=== PATIENT | female | born 1940 | race Caucasian/White ===

== ENCOUNTER → 2018-03-13 08:31 | Outpatient (CLI) | payer MEDICARE, SELFPAY ==
[2018-03-13 09:36] LABS: Add Manual Diff / Slide Review NO; Basophils Percent Auto 0.8 % (0-2); Eosinophils Percent Auto 4.9 % (2-4); Hematocrit 41.5 % (36-46); Hemoglobin 14.1 g/dL (12.0-16.0); Lymphocytes Percent Auto 20.7 % (25-40); Mean Corpuscular HGB Conc 34.1 % (30-36); Mean Corpuscular Hemoglobin 31.6 PG (26-34); Mean Corpuscular Volume 92.7 fL (80-100); Monocytes Percent Auto 7.4 % (3-14); Neutrophils Absolute Auto 4000 /uL (3000-5900); Neutrophils Percent Auto 66.2 % (50-75); Platelet Count 323 X10^3/uL (150-400); Red Blood Cell Count 4.47 X10^6/uL (4.0-5.2); Red Cell Distribution Width 13.1 % (11.6-14.8)
[2018-03-13 10:08] LABS: Alanine Aminotransferase 31 IU/L (9-52); Albumin Globulin Ratio 1.4 (1.0-2.8); Alkaline Phosphatase 71 U/L (38-126); Aspartate Aminotransferase 32 IU/L (14-36); Bilirubin Total 0.6 mg/dL (0.2-1.3); Blood Urea Nitrogen 16 mg/dL (7-17); Calcium 9.1 mg/dL (8.4-10.2); Carbon Dioxide 31 mmol/L (22-32); Chloride 105 mmol/L (98-107); Cholesterol 248 mg/dL (140-199); Estimated Glomerular Filt Rate > 60.0 mL/min (>60); Globulin 2.9 g/dL (1.7-4.1); Glucose 99 mg/dL (80-110); HDL Cholesterol 71 mg/dL (40-60); HEMOLYSIS < 15 (0-50); LDL Cholesterol Calculated 163 mg/dL (<100); Potassium 4.3 mmol/L (3.4-5.1); Sodium 142 mmol/L (137-145); Total Protein 6.9 g/dL (6.3-8.2); Triglycerides 72 mg/dL (35-150)
[2018-03-13 10:09] LABS: Vitamin D 25 Hydroxy (D3) 38.7 ng/mL (30.0-100.0)
[2018-03-13 10:22] LABS: Thyroid Stimulating Hormone 5.35 uIU/mL (0.47-4.68)
[2018-03-13 10:47] LABS: Vitamin B12 590 pg/mL (239-931)
== END ==
PROVIDERS: PCP Family Medicine
DX: E03.9 Hypothyroidism, unspecified (principal); E78.2 Mixed hyperlipidemia; I10 Essential (primary) hypertension; R42 Dizziness and giddiness
CPT/HCPCS: 80053; 80061; 82306; 82607; 84443; 85025

== ENCOUNTER → 2018-03-31 08:53 | Outpatient (CLI) | payer MEDICARE, SELFPAY ==
[2018-03-31 12:16] LABS: TSH w/ Reflex to FT4 2.37 uIU/mL (0.47-4.68)
== END ==
PROVIDERS: Family Provider Family Medicine; PCP Family Medicine
DX: E03.9 Hypothyroidism, unspecified (principal)
CPT/HCPCS: 36415; 84443

== ENCOUNTER → 2018-06-04 10:00 | Outpatient (CLI) | payer MEDICARE, SELFPAY ==
[2018-06-04 11:06] LABS: BUN Creatinine Ratio 21.4 (6-22); Blood Urea Nitrogen 15 mg/dL (7-17); Calcium 8.6 mg/dL (8.4-10.2); Carbon Dioxide 29 mmol/L (22-32); Chloride 104 mmol/L (98-107); Creatine Kinase 72 U/L (30-135); Estimated Glomerular Filt Rate > 60.0 mL/min (>60); Glucose 84 mg/dL (80-110); HEMOLYSIS < 15 (0-50); Potassium 3.8 mmol/L (3.4-5.1); Sodium 143 mmol/L (137-145)
== END ==
PROVIDERS: PCP Student in an Organized Health Care Education/Training Program; Visit Provider Student in an Organized Health Care Education/Training Program
DX: R25.2 Cramp and spasm (principal)
CPT/HCPCS: 36415; 80048; 82550; 83735

== ENCOUNTER → 2018-09-03 10:11 | Outpatient (CLI) | payer MEDICARE, SELFPAY ==
--- NOTE | 2018-09-03 10:13 | DI.RAD.S_ITS ---
PROCEDURE: XR CHEST 2V INDICATIONS: Lower lobe crackles TECHNIQUE: 2 views of the chest were acquired. COMPARISON: [facility], CHEST 2 VIEW, 09/20/2016, 9:34. [facility], CHEST 2 VIEW, 08/22/2017, 10:15. FINDINGS: Surgical changes and devices: None. Lungs and pleura: There is linear densities left base, likely atelectasis or scars. Chronic apical opacities are likely scars/atelectasis. No pleural effusions or pneumothorax. Mediastinum: Mediastinal contours are normal. Heart size is normal. Bones and chest wall: No suspicious bony abnormalities. Soft tissues appear unremarkable. IMPRESSION: No acute cardiopulmonary disease. Dictated by: Mary Anne Pandya M.D. on 09/03/2018 at 11:04 Approved by: Mary Anne Panyda M.D. on 09/03/2018 at 11:06
== END ==
PROVIDERS: Family Provider Family Medicine; PCP Student in an Organized Health Care Education/Training Program; Visit Provider Registered Nurse
DX: R05 Cough (principal)
CPT/HCPCS: 71046

== ENCOUNTER → 2020-02-04 09:02 | Outpatient (CLI) | payer MEDICARE, SELFPAY ==
[2020-02-04 10:28] LABS: BUN Creatinine Ratio 20.8 (6-22); Blood Urea Nitrogen 15 mg/dL (7-17); Calcium 9.2 mg/dL (8.4-10.2); Carbon Dioxide 30 mmol/L (22-32); Chloride 105 mmol/L (98-107); Estimated Glomerular Filt Rate > 60.0 mL/min (>60); Glucose 86 mg/dL (80-110); HEMOLYSIS < 15 (0-50); Potassium 3.8 mmol/L (3.4-5.1); Sodium 138 mmol/L (137-145)
[2020-02-04 11:01] LABS: TSH w/ Reflex to FT4 0.81 uIU/mL (0.47-4.68)
== END ==
PROVIDERS: Family Provider Family Medicine; PCP Student in an Organized Health Care Education/Training Program; Referring Provider Student in an Organized Health Care Education/Training Program; Visit Provider Student in an Organized Health Care Education/Training Program
DX: E03.9 Hypothyroidism, unspecified (principal); I10 Essential (primary) hypertension
CPT/HCPCS: 36415; 80048; 84443

== ENCOUNTER → 2020-05-25 13:02 | Outpatient (CLI) | payer MEDICARE, SELFPAY ==
--- NOTE | 2020-06-21 09:05 | P.HOLT.S_ITS ---
Ambulatory Care Coordinator Report Referral & Results Date Patient Seen: 05/25/20 Requesting provider: Curt Schwartz Indication: Dizziness Duration of monitoring (days): 13 Diary information: There was 1 patient triggered event and no patient diary entries The patient triggered event was associated with (within 45 seconds) sinus rhythm and PACs Data: Minimum heart rate identified was 54 beats per minute at 04:11 on 06/01/2020 Maximum sinus heart rate was 135 beats per minute at 11:50 on 05/06/2020 Maximum overall heart rate was 197 beats per minute at 16:29 on 06/06/2020 during a 10 beat run of SVT Less than 1% of identified beats were ventricular ectopic in origin Approximately 2.5% of identified beats were supraventricular ectopic in origin There were 30 runs of SVT/atrial tachycardia with the fastest being the 10 beat run referenced above, the longest being 15 beats at a rate of 121 beats per minute (which suggest atrial tachycardia rather than true SVT) Supraventricular couplets and triplets were quite rare but present Impression: Patient with prominently supraventricular dysrhythmia probably a source of symptoms given patient triggered event. No serious or more significant dysrhythmias identified on this study. Clinical correlation suggested
== END ==
PROVIDERS: Family Provider Family Medicine; PCP Student in an Organized Health Care Education/Training Program; Referring Provider Student in an Organized Health Care Education/Training Program; Visit Provider Student in an Organized Health Care Education/Training Program
DX: R42 Dizziness and giddiness (principal); R55 Syncope and collapse
CPT/HCPCS: 0296T; 0298T

== ENCOUNTER → 2020-05-25 13:28 | Outpatient (CLI) | payer MEDICARE, SELFPAY | PROVIDERS: Family Provider Family Medicine; PCP Student in an Organized Health Care Education/Training Program; Referring Provider Student in an Organized Health Care Education/Training Program; Visit Provider Student in an Organized Health Care Education/Training Program | DX: Z13.820 Encounter for screening for osteoporosis (principal); M85.851 Other specified disorders of bone density and structure, right thigh; Z78.0 Asymptomatic menopausal state; E07.9 Disorder of thyroid, unspecified; Z87.891 Personal history of nicotine dependence; Z91.89 Other specified personal risk factors, not elsewhere classified; R42 Dizziness and giddiness; R55 Syncope and collapse | CPT/HCPCS: 0296T; 77080 ==

== ENCOUNTER → 2020-07-10 09:50 | Outpatient (CLI) | payer MEDICARE, SELFPAY ==
--- NOTE | 2020-07-10 | DI.MG.S_ITS ---
BILATERAL DIGITAL SCREENING MAMMOGRAM 3D/2D WITH CAD WITH AUGMENTATION: 07/10/2020 CLINICAL: Routine screening. Comparison is made to exams dated: 07/15/2017 mammogram, 07/14/2015 mammogram, and 09/30/2012 mammogram - [facility]. There are scattered fibroglandular elements in both breasts. Current study was also evaluated with a Computer Aided Detection (CAD) system. Bilateral breast implants are stable. There are benign densities in the left breast. No significant masses, calcifications, or other findings are seen in either breast. There has been no significant interval change. IMPRESSION: BENIGN There is no mammographic evidence of malignancy. A 1 year screening mammogram is recommended. This exam was interpreted at Station ID: [id number]. NOTE: For mammograms, a report in lay terms will be sent to the patient. Approximately 15% of breast malignancies will not be visualized mammographically. In the management of a palpable breast mass, a negative mammogram must not discourage biopsy of a clinically suspicious lesion. Electronically Signed By: Chris conner/eron:07/10/2020 18:26:48 copy to: Chencho oMnreal letter sent: Normal Exam ACR BI-RADS Category 2: Benign Finding(s) [id number]
== END ==
PROVIDERS: Family Provider Family Medicine; PCP Student in an Organized Health Care Education/Training Program; Referring Provider Student in an Organized Health Care Education/Training Program; Visit Provider Student in an Organized Health Care Education/Training Program
DX: Z12.31 Encounter for screening mammogram for malignant neoplasm of breast (principal)
CPT/HCPCS: 77063; 77067

== ENCOUNTER → 2020-10-26 13:35 | Outpatient (CLI) | payer MEDICARE, SELFPAY ==
--- NOTE | 2020-10-26 | DI.MRI.S_ITS ---
PROCEDURE: MR LUMBAR SPINE WO CON INDICATIONS: Radiculopathy, lumbar region TECHNIQUE: Noncontrast sagittal T1 spin echo and T2 fast echo, sagittal STIR, axial T1 and T2 fast spin echo through the lumbar spine. In cases with scoliosis, additional coronal T2 fast spin echo may be performed. COMPARISON: None. FINDINGS: Image quality: This examination is limited by involuntary motion artifact. Alignment and Curvature: There is [id number] levoconvex lumbar scoliosis. Minimal retrolisthesis is seen at L2-L3 and L3-L4 and L5-S1, with mild retrolisthesis at L4-L5. Bone Marrow: Marrow is of normal overall signal. No acute vertebral body compression fractures. Spinal Cord: Conus medullaris terminates at the T12-L1 level. Visualized cord demonstrates normal signal and size. Paraspinous Soft Tissues: No paravertebral masses. T12-L1: Normal appearance. L1-L2: No significant abnormality is seen. L2-L3: Moderate to severe loss of disc height and disc signal can be seen. At least moderate disc bulge is seen, which is eccentric to the right. Mild facet joint hypertrophy is seen. Moderate bilateral neural foraminal narrowing can be seen, right worse than left. Moderate central canal narrowing is seen. L3-L4: Moderate to severe loss of disc height and disc signal can be seen at this level. Partial bridging of anterior osteophytes and anterior endplate sclerosis can be seen at this level. At least moderate disc bulge is seen. Moderate facet joint hypertrophy is seen. There is moderate left-sided and at least moderate right-sided neural foraminal narrowing seen. There is a mild degree compression seen upon the exiting nerve roots. Moderate central canal narrowing is seen. L4-L5: Moderate loss of disc height is seen. Loss of disc signal is seen. Moderate disc bulge is seen, with a mild central disc protrusion. Prior postoperative change can be seen, with left hemilaminectomy. Moderate facet joint hypertrophy is seen. There is moderate to severe bilateral neural foraminal narrowing seen. There is a degree of compression seen upon the exiting nerve roots. Mild to moderate central canal narrowing is seen at this level. L5-S1: Moderate to severe loss of disc height and disc signal can be seen. Moderate generalized disc bulge is seen. Moderate facet joint hypertrophy is seen. There is at least moderate right-sided and moderate to severe left-sided neural foraminal narrowing seen. There is a degree of compression seen upon the exiting nerve roots. Mild central canal narrowing is seen. The nerve roots can be seen along the periphery of the thecal sac at this level, as on series 5, image 30, which is consistent with arachnoiditis. IMPRESSION: Prior postoperative change at L4-L5, with prior left hemilaminectomy. Findings of arachnoiditis can be seen, with peripheraliztion of the nerve roots inferiorly. Multiple levels of relatively prominent degenerative change are seen. Multiple sites of moderate to severe neural foraminal narrowing can be seen, with associated exiting nerve root compression. Moderate central canal narrowing is present at L2-L3 and L3-L4. [id number] levoconvex lumbar scoliosis. Dictated by: Long French M.D. on 10/26/2020 at 16:26 Approved by: Long French M.D. on 10/26/2020 at 16:32
== END ==
PROVIDERS: Family Provider Family Medicine; PCP Student in an Organized Health Care Education/Training Program; Referring Provider Student in an Organized Health Care Education/Training Program; Visit Provider Orthopaedic Surgery
DX: M47.26 Other spondylosis with radiculopathy, lumbar region (principal); M47.27 Other spondylosis with radiculopathy, lumbosacral region; G03.9 Meningitis, unspecified; M48.061 Spinal stenosis, lumbar region without neurogenic claudication; M48.07 Spinal stenosis, lumbosacral region; M41.86 Other forms of scoliosis, lumbar region
CPT/HCPCS: 72148

== ENCOUNTER → 2021-03-08 10:30 | Outpatient (CLI) | payer MEDICARE, SELFPAY ==
[2021-03-08 12:17] LABS: BUN Creatinine Ratio 16.7 (6-22); Blood Urea Nitrogen 12 mg/dL (7-17); Calcium 9.3 mg/dL (8.4-10.2); Carbon Dioxide 30 mmol/L (22-32); Chloride 103 mmol/L (98-107); Estimated Glomerular Filt Rate > 60.0 mL/min (>60); Glucose 93 mg/dL (80-110); HEMOLYSIS < 15 (0-50); Potassium 4.1 mmol/L (3.4-5.1); Sodium 138 mmol/L (137-145)
[2021-03-08 14:42] LABS: Thyroid Stimulating Hormone 1.36 uIU/mL (0.47-4.68)
== END ==
PROVIDERS: Family Provider Family Medicine; PCP Student in an Organized Health Care Education/Training Program; Referring Provider Student in an Organized Health Care Education/Training Program; Visit Provider Student in an Organized Health Care Education/Training Program
DX: I10 Essential (primary) hypertension (principal); E03.9 Hypothyroidism, unspecified; F41.9 Anxiety disorder, unspecified; R25.2 Cramp and spasm
CPT/HCPCS: 36415; 80048; 84443

== ENCOUNTER → 2021-04-25 08:50 | Outpatient (CLI) | payer MEDICARE, SELFPAY ==
[2021-04-25 11:56] LABS: COVID19 -Nasal RAPID Negative (Negative)
== END ==
PROVIDERS: Family Provider Family Medicine; PCP Student in an Organized Health Care Education/Training Program; Visit Provider Physician Assistant
DX: Z20.822 Contact with and (suspected) exposure to COVID-19 (principal); R05 Cough; R06.2 Wheezing
CPT/HCPCS: 87635

== ENCOUNTER → 2021-05-09 16:09 | Outpatient (CLI) | payer MEDICARE, SELFPAY ==
--- NOTE | 2021-05-09 16:13 | DI.RAD.S_ITS ---
PROCEDURE: XR CHEST 2V INDICATIONS: Chest pain left side TECHNIQUE: 2 views of the chest were acquired. COMPARISON: [facility], CR, XR CHEST 2V, 09/03/2018, 10:16. FINDINGS: Surgical changes and devices: None. Lungs and pleura: Lungs are clear. No pleural effusions or pneumothorax. Mediastinum: Mediastinal contours are normal. Heart size is normal. Bones and chest wall: No suspicious bony abnormalities. Soft tissues appear unremarkable. IMPRESSION: No acute cardiopulmonary process demonstrated radiographically. Dictated by: Toño Mccann M.D. on 05/09/2021 at 16:28 Approved by: Toño Mccann M.D. on 05/09/2021 at 16:29
== END ==
PROVIDERS: Family Provider Family Medicine; PCP Student in an Organized Health Care Education/Training Program; Referring Provider Student in an Organized Health Care Education/Training Program; Visit Provider Student in an Organized Health Care Education/Training Program
DX: R07.9 Chest pain, unspecified (principal)
CPT/HCPCS: 71046

== ENCOUNTER 2021-07-09 14:55 | Emergency (ER) | payer MEDICARE, SELFPAY ==
[2021-07-09] VITALS (12 sets, daily range): BP systolic 148–201; BP diastolic 84–101; PULSE 65–73; RESP 12–23; TEMP 36.4; O2SAT 94–99; BMI 23.0
--- NOTE | 2021-07-09 15:04 | DI.RAD.S_ITS ---
PROCEDURE: XR CHEST 1V INDICATIONS: chest pain TECHNIQUE: One view of the chest was acquired. COMPARISON: [facility], CR, XR CHEST 2V, 05/09/2021, 16:14. FINDINGS: Surgical changes and devices: None. Lungs and pleura: Lungs are clear. No pleural effusions or pneumothorax. Mediastinum: Mediastinal contours appear normal. Heart size is normal. Bones and chest wall: No suspicious bony lesions. Overlying soft tissues appear unremarkable. IMPRESSION: No acute process. Dictated by: Natividad Rojas M.D. on 07/09/2021 at 15:21 Approved by: Natividad Rojas M.D. on 07/09/2021 at 15:21
[2021-07-09] MEDS: ASPIRIN 81 MG CHEW TAB 324 MG PO (15:23)
[2021-07-09] MEDS: ONDANSETRON 4 MG/2 ML INJ IV (15:43)
[2021-07-09 15:51] LABS: Add Manual Diff / Slide Review NO; Basophils Absolute Auto 0 /uL (0-100); Basophils Percent Auto 0.5 % (0-2); Eosinophils Absolute Auto 100 /uL (0-450); Eosinophils Percent Auto 1.1 % (2-4); Hematocrit 44.2 % (36-46); Hemoglobin 15.3 g/dL (12.0-16.0); Lymphocytes Absolute Auto 1400 /uL (1100-4500); Mean Corpuscular HGB Conc 34.7 % (30-36); Mean Corpuscular Hemoglobin 31.4 PG (26-34); Mean Corpuscular Volume 90.6 fL (80-100); Monocytes Absolute Auto 500 /uL (0-900); Monocytes Percent Auto 5.8 % (3-14); Neutrophils Absolute Auto 6400 /uL (1500-7000); Neutrophils Percent Auto 75.6 % (50-75); Platelet Count 331 X10^3/uL (150-400); Red Blood Cell Count 4.88 X10^6/uL (4.0-5.2); Red Cell Distribution Width 13.3 % (11.6-14.8); White Blood Cell Count 8.4 X10^3/uL (4.5-11.0)
[2021-07-09 16:06] LABS: Alanine Aminotransferase 17 IU/L (<35); Albumin 4.4 g/dL (3.5-5.0); Albumin Globulin Ratio 1.5 (1.0-2.8); Alkaline Phosphatase 80 U/L (38-126); Aspartate Aminotransferase 26 IU/L (14-36); BUN Creatinine Ratio 20.3 (6-22); Bilirubin Total 0.9 mg/dL (0.2-1.3); Blood Urea Nitrogen 15 mg/dL (7-17); Calcium 10.2 mg/dL (8.4-10.2); Carbon Dioxide 31 mmol/L (22-32); Chloride 101 mmol/L (98-107); Creatine Kinase 32 U/L (30-135); Estimated Glomerular Filt Rate > 60.0 mL/min (>60); Globulin 2.9 g/dL (1.7-4.1); Glucose 113 mg/dL (80-110); HEMOLYSIS < 15 (0-50); Lipase 92 U/L (23-300); Potassium 3.7 mmol/L (3.4-5.1); Sodium 139 mmol/L (137-145); Total Protein 7.3 g/dL (6.3-8.2)
[2021-07-09 16:19] LABS: Troponin I < 0.012 ng/mL (0.01-0.034)
--- NOTE | 2021-07-09 16:27 | ED_ITS ---
HPI - Chest Pain <Jamila Delgado PA-C - Last Filed: 07/09/21 20:38> General Chief Complaint: Chest Pain Stated Complaint: CHEST PAIN NAUSEA Time Seen by Provider: 07/09/21 15:19 Source: patient and family Mode of arrival: Family Vehicle Limitations: no limitations History of Present Illness HPI narrative: 81-year-old female with past medical history hypertension, hypothyroidism, migraine, SVT tachycardia, hyperlipidemia presents to the ED with 1 week of substernal chest pain, nausea. Patient denies fever, chills, shortness of breath, cough, congestion, vomiting, abdominal pain, dysuria, lightheadedness, dizziness, syncope. Patient's pain does not radiate. No aggravating or alleviating factors. Patient denies history of GERD. Related Data Previous Rx's Medication Instructions Recorded hydroxyzine pamoate 25 mg capsule 25 mg PO Q8H PRN #90 cap 03/31/18 tramadol 50 mg tablet 50 mg PO TID PRN #30 tab 07/06/19 cholecalciferol (vitamin D3) 100 4,000 unit PO DAILY #90 cap 06/22/20 mcg (4,000 unit) capsule cyclobenzaprine 10 mg tablet 10 mg PO BEDTIME PRN #90 tab 06/22/20 paroxetine HCl 20 mg tablet (Paxil) 20 mg PO Q DAY #90 tab 10/09/20 clobetasol 0.05 % topical ointment 1 applic TOPICAL QDAY #30 g 10/31/20 alprazolam 0.5 mg tablet 0.5 mg PO BEDTIME PRN #15 tab 05/09/21 levothyroxine 75 mcg tablet 75 mcg PO QAM #90 tab 05/30/21 (Synthroid) Allergies Allergy/AdvReac Type Severity Reaction Status Date / Time metoprolol Allergy Severe Hallucinations, Verified 05/09/21 15:38 SOB, pruritus Review of Systems <Jamila Delgado PA-C - Last Filed: 07/09/21 20:38> Review of Systems ROS Unobtainable: All systems reviewed & are unremarkable except as noted in HPI and below Constitutional Constitutional: Denies chills, Denies fatigue, Denies fever(s), Denies frequent falls, Denies lethargy and Denies weakness Eyes Eyes: Denies change in vision, Denies eye discharge, Denies irritation and Denies loss of vision ENT Ears, Nose, Mouth, and Throat: Denies change in voice, Denies dizziness, Denies neck pain, Denies sore throat and Denies throat swelling Cardiovascular Cardiovascular: Reports chest pain, Denies irregular heart rhythm, Denies light headedness, Denies palpitations, Denies dyspnea, Denies dyspnea on exertion and Denies orthopnea Respiratory Respiratory: Denies cough, Denies dyspnea, Denies dyspnea on exertion and Denies wheezing Gastrointestinal Gastrointestinal: Denies abdominal pain, Denies change in bowel habits, Denies diarrhea, Reports nausea and Denies vomiting Genitourinary Genitourinary: Denies hematuria, Denies flank pain, Denies urinary incontinence and Denies urinary urgency Musculoskeletal Musculoskeletal: Denies back pain, Denies muscle weakness, Denies neck pain, Denies numbness and Denies tingling Integumentary/Breasts Skin/Breast: Denies pruritus, Denies erythema, Denies rash and Denies wounds Neurologic Neurologic: Denies behavioral changes, Denies confusion, Denies dizziness, Denies frequent falls, Denies loss of vision, Denies numbness, Denies tingling and Denies weakness Psychiatric Psychiatric: Denies anxiety, Denies behavioral changes, Denies confusion, Denies depression, Denies homicidal ideation and Denies suicidal ideation Endocrine Endocrine: Denies fatigue, Denies flushing and Denies palpitations Hematologic/Lymphatic Hematologic/Lymphatic: Denies easy bruising Allergic/Immunologic Allergic/Immunologic: Denies urticaria, Denies throat swelling and Denies wheezing Patient History <Jamila Delgado PA-C - Last Filed: 07/09/21 20:38> Medical History Alopecia (2006) Anxiety Cataracts, bilateral (2013) Chicken pox (~1943) Chronic back pain Chronic headaches Eczema Foot pain (2014) Fractures (1961) Gastric ulcer Hyperlipidemia Hypertension Hypothyroidism (2012) Lichen sclerosus et atrophicus of the vulva Measles Oral lichen planus Peptic ulcer disease RLS (restless legs syndrome) Skin cancer (~1989) Sleep apnea (2008) Tinnitus (1988) Urinary incontinence (2009) Vaginal wall prolapse (~1989) Surgical History Anesthesia History of breast augmentation (1973) History of breast augmentation (1989) History of cataract surgery (2013) History of lumbosacral spine surgery (2001) History of third molar tooth extraction History of vaginal surgery (1993) Status post appendectomy (~1948) Status post trigger finger release (2013) Status post tubal ligation (1977) Family History Father Heart disease Grandfather Heart disease Grandmother Heart disease Mother Cancer Metastatic lung cancer (metastasis from lung to other site) Metastatic cancer to brain Family/Other Fibromyalgia Social History Smoking Status: Former smoker Smoking Status: Former smoker alcohol intake frequency: 0-2 drinks per day Substance Use Type: does not use Exam <Jamila Delgado PA-C - Last Filed: 07/09/21 20:38> Initial Vital Signs Initial Vital Signs: Vital Signs Temperature 97.5 F L 07/09/21 14:58 Pulse Rate 68 07/09/21 14:58 Respiratory Rate 18 07/09/21 14:58 Blood Pressure 195/86 H 07/09/21 14:58 Pulse Oximetry 98 07/09/21 14:58 Const General: cooperative, healthy appearing and comfortable HENCO Head: normal to inspection Eyes General: appearance normal, both eyes and all related structures Neck Neck: normal visual inspection Chest Chest: normal inspection of the chest Resp Effort & Inspection: normal respiratory effort Auscultation: clear to auscultation bilaterally Cardio Rate: regular rate Rhythm: regular rhythm GI Other: Abdomen is soft, nondistended, nontender to palpation. No CVA tenderness. General: No CVA tenderness Skin General: no rashes or lesions noted Neuro General: patient alert, patient awake and patient oriented x3 Extrem General: normal to inspection <Cami Amezcua MD - Last Filed: 07/14/21 23:57> Initial Vital Signs Initial Vital Signs: Vital Signs Temperature 97.5 F L 07/09/21 14:58 Pulse Rate 68 07/09/21 14:58 Respiratory Rate 18 07/09/21 14:58 Blood Pressure 195/86 H 07/09/21 14:58 Pulse Oximetry 98 07/09/21 14:58 Course <Jamila Delgado PA-C - Last Filed: 07/09/21 20:38> Course Course Narrative: Patient's workup negative. Troponin was negative. Repeat troponin negative as well. GI cocktail and Pepcid significantly improved patient's symptoms. Will discharge patient home with ED return precautions. Patient verbalized understanding. Orders Ordered: Discontinued Medications Aspirin (Aspirin 81 Mg Chew Tab) 324 mg PO NOW ONE Stop: 07/09/21 15:04 Last Admin: 07/09/21 15:23 Dose: 324 mg Documented by: LAST Al Hydrox/Mg Hydrox/Simethicone 20 ml/ Lidocaine HCl 15 ml 0 ml PO NOW ONE Stop: 07/09/21 16:57 Last Admin: 07/09/21 17:15 Dose: 35 ml Documented by: ATAYLOR Famotidine (Famotidine 20 Mg/2 Ml Vial) 20 mg IV NOW REBECA Last Admin: 07/09/21 17:14 Dose: 20 mg Documented by: ATAYLOR Ondansetron HCl (Ondansetron 4 Mg/2 Ml Inj) 4 mg IV NOW ONE Stop: 07/09/21 15:27 Last Admin: 07/09/21 15:43 Dose: 4 mg Documented by: LAST Vital Signs Vital signs: Vital Signs - 8 hr 07/09/21 14:58 07/09/21 15:23 07/09/21 15:30 Temperature 97.5 F L Pulse Rate 68 69 72 Respiratory Rate 18 23 Blood Pressure 195/86 H Pulse Oximetry 98 98 99 07/09/21 15:31 07/09/21 15:53 07/09/21 16:00 Temperature Pulse Rate 73 68 67 Respiratory Rate 23 16 19 Blood Pressure 201/101 H 199/90 H 178/87 H Pulse Oximetry 98 99 98 07/09/21 16:30 07/09/21 17:00 07/09/21 17:15 Temperature Pulse Rate 71 67 68 Respiratory Rate 14 12 19 Blood Pressure 183/86 H 168/85 H Pulse Oximetry 99 97 94 07/09/21 17:30 07/09/21 18:00 07/09/21 19:00 Temperature Pulse Rate 65 68 70 Respiratory Rate 14 17 16 Blood Pressure 196/89 H 185/84 H 148/86 H Pulse Oximetry 96 96 99 <Cami Amezcua MD - Last Filed: 07/14/21 23:57> Orders Ordered: Discontinued Medications Aspirin (Aspirin 81 Mg Chew Tab) 324 mg PO NOW ONE Stop: 07/09/21 15:04 Last Admin: 07/09/21 15:23 Dose: 324 mg Documented by: LAST Al Hydrox/Mg Hydrox/Simethicone 20 ml/ Lidocaine HCl 15 ml 0 ml PO NOW ONE Stop: 07/09/21 16:57 Last Admin: 07/09/21 17:15 Dose: 35 ml Documented by: ATAYLVALERIA Famotidine (Famotidine 20 Mg/2 Ml Vial) 20 mg IV NOW REBECA Last Admin: 07/09/21 17:14 Dose: 20 mg Documented by: JOHN Ondansetron HCl (Ondansetron 4 Mg/2 Ml Inj) 4 mg IV NOW ONE Stop: 07/09/21 15:27 Last Admin: 07/09/21 15:43 Dose: 4 mg Documented by: LAST Vital Signs Vital signs: Vital Signs - 8 hr 07/09/21 14:58 07/09/21 15:23 07/09/21 15:30 Temperature 97.5 F L Pulse Rate 68 69 72 Respiratory Rate 18 23 Blood Pressure 195/86 H Pulse Oximetry 98 98 99 07/09/21 15:31 07/09/21 15:53 07/09/21 16:00 Temperature Pulse Rate 73 68 67 Respiratory Rate 23 16 19 Blood Pressure 201/101 H 199/90 H 178/87 H Pulse Oximetry 98 99 98 07/09/21 16:30 07/09/21 17:00 07/09/21 17:15 Temperature Pulse Rate 71 67 68 Respiratory Rate 14 12 19 Blood Pressure 183/86 H 168/85 H Pulse Oximetry 99 97 94 07/09/21 17:30 07/09/21 18:00 07/09/21 19:00 Temperature Pulse Rate 65 68 70 Respiratory Rate 14 17 16 Blood Pressure 196/89 H 185/84 H 148/86 H Pulse Oximetry 96 96 99 MDM - Chest Pain <Jamila Delgado PA-C - Last Filed: 07/09/21 20:38> Lab Data Lab results narrative: Labs within normal. Trop x2 negative Result diagrams: 07/09/21 15:30 07/09/21 15:30 Labs: Lab Results 07/09/21 07/09/21 07/09/21 Range/Units 15:30 15:30 18:14 WBC 8.4 (4.5-11.0) X10^3/uL RBC 4.88 (4.0-5.2) X10^6/uL Hgb 15.3 (12.0-16.0) g/dL Hct 44.2 (36-46) % MCV 90.6 (80-100) fL MCH 31.4 (26-34) PG MCHC 34.7 (30-36) % RDW 13.3 (11.6-14.8) % Plt Count 331 (150-400) X10^3/uL Neut % (Auto) 75.6 H (50-75) % Lymph % (Auto) 17.0 L (25-40) % [place] % (Auto) 5.8 (3-14) % Eos % (Auto) 1.1 L (2-4) % Baso % (Auto) 0.5 (0-2) % Neut # (Auto) 6400 (0566-5084) /uL Lymph # (Auto) 1400 (0813-0813) /uL [place] # (Auto) 500 (0-900) /uL Eos # (Auto) 100 (0-450) /uL Baso # (Auto) 0 (0-100) /uL Sodium 139 (137-145) mmol/L Potassium 3.7 (3.4-5.1) mmol/L Chloride 101 (98-107) mmol/L Carbon Dioxide 31 (22-32) mmol/L BUN 15 (7-17) mg/dL Creatinine 0.74 (0.52-1.04) mg/dL Estimated GFR > 60.0 (>60) mL/min BUN/Creatinine Ratio 20.3 (6-22) Glucose 113 H (80-110) mg/dL Calcium 10.2 (8.4-10.2) mg/dL Total Bilirubin 0.9 (0.2-1.3) mg/dL AST 26 (14-36) IU/L ALT 17 (<35) IU/L Alkaline Phosphatase 80 (38-126) U/L Total Creatine Kinase 32 (30-135) U/L CK-MB (CK-2) TNP CK-MB (CK-2) Rel Index TNP Troponin I < 0.012 < 0.012 (0.01-0.034) ng/mL Total Protein 7.3 (6.3-8.2) g/dL Albumin 4.4 (3.5-5.0) g/dL Globulin 2.9 (1.7-4.1) g/dL Albumin/Globulin Ratio 1.5 (1.0-2.8) Lipase 92 (23-300) U/L Urine Dip Bedside Urine Glucose Negative Bedside Urine Bilirubin - Negative Bedside Urine Ketone - Negative Urine Specific [place] 1.025 Bedside Urine Occult Blood - Negative Bedside Urine pH 6.0 Bedside Urine Protein - Negative Bedside Urine Urobilinogen - Negative Bedside Urine Nitrite - Negative Bedside Urine Leukocytes - Negative Esterase Imaging Data Chest x-ray: Radiologist's Impression: PROCEDURE:? XR CHEST 1V ? INDICATIONS:? chest pain ? TECHNIQUE:? One view of the chest was acquired.? ? COMPARISON:? [facility], , XR CHEST 2V, 05/09/2021, 16:14. ? FINDINGS:? ? Surgical changes and devices:? None.? ? Lungs and pleura:? Lungs are clear.? No pleural effusions or pneumothorax.? ? Mediastinum:? Mediastinal contours appear normal.? Heart size is normal.? ? Bones and chest wall:? No suspicious bony lesions.? Overlying soft tissues appear unremarkable.? ? IMPRESSION:? No acute process. ? ? Dictated by: Natividad Rojas M.D. on 07/09/2021 at 15:21 ? ? Approved by: Natividad Rojas M.D. on 07/09/2021 at 15:21 ? ECG Data Interpretation: Normal sinus rhythm, nonspecific T-wave abnormality, no axis deviation. [facility] Narrative Medical decision making narrative: 81-year-old female with past medical history hypertension, hypothyroidism, migraine, SVT tachycardia, hyperlipidemia presents to the ED with 1 week of substernal chest pain, nausea. Concern for ACS versus gastritis versus GERD versus gastroenteritis. Will order chest x-ray, EKG, labs, troponin. Will give GI cocktail, Pepcid for symptoms. Will reassess. <Cami Amezcua MD - Last Filed: 07/14/21 23:57> Lab Data Labs: Lab Results 07/09/21 07/09/21 07/09/21 Range/Units 15:30 15:30 18:14 WBC 8.4 (4.5-11.0) X10^3/uL RBC 4.88 (4.0-5.2) X10^6/uL Hgb 15.3 (12.0-16.0) g/dL Hct 44.2 (36-46) % MCV 90.6 (80-100) fL MCH 31.4 (26-34) PG MCHC 34.7 (30-36) % RDW 13.3 (11.6-14.8) % Plt Count 331 (150-400) X10^3/uL Neut % (Auto) 75.6 H (50-75) % Lymph % (Auto) 17.0 L (25-40) % [place] % (Auto) 5.8 (3-14) % Eos % (Auto) 1.1 L (2-4) % Baso % (Auto) 0.5 (0-2) % Neut # (Auto) 6400 (3158-8882) /uL Lymph # (Auto) 1400 (1881-4238) /uL [place] # (Auto) 500 (0-900) /uL Eos # (Auto) 100 (0-450) /uL Baso # (Auto) 0 (0-100) /uL Sodium 139 (137-145) mmol/L Potassium 3.7 (3.4-5.1) mmol/L Chloride 101 (98-107) mmol/L Carbon Dioxide 31 (22-32) mmol/L BUN 15 (7-17) mg/dL Creatinine 0.74 (0.52-1.04) mg/dL Estimated GFR > 60.0 (>60) mL/min BUN/Creatinine Ratio 20.3 (6-22) Glucose 113 H (80-110) mg/dL Calcium 10.2 (8.4-10.2) mg/dL Total Bilirubin 0.9 (0.2-1.3) mg/dL AST 26 (14-36) IU/L ALT 17 (<35) IU/L Alkaline Phosphatase 80 (38-126) U/L Total Creatine Kinase 32 (30-135) U/L CK-MB (CK-2) TNP CK-MB (CK-2) Rel Index TNP Troponin I < 0.012 < 0.012 (0.01-0.034) ng/mL Total Protein 7.3 (6.3-8.2) g/dL Albumin 4.4 (3.5-5.0) g/dL Globulin 2.9 (1.7-4.1) g/dL Albumin/Globulin Ratio 1.5 (1.0-2.8) Lipase 92 (23-300) U/L Urine Dip Bedside Urine Glucose Negative Bedside Urine Bilirubin - Negative Bedside Urine Ketone - Negative Urine Specific [place] 1.025 Bedside Urine Occult Blood - Negative Bedside Urine pH 6.0 Bedside Urine Protein - Negative Bedside Urine Urobilinogen - Negative Bedside Urine Nitrite - Negative Bedside Urine Leukocytes - Negative Esterase Discharge Plan Departure Patient Disposition: Home Clinical Impression: Chest pain Instructions: DI for Gastroesophageal Reflux Disease (GERD), DI for Chest Pain, GERD Diet Activity Restrictions/Additional Instructions: You were evaluated in the ED today for chest pain. Your EKG, chest x-ray, labs were normal. Your symptoms improved with antacids. Your symptoms were likely due to acid reflux. You may take Pepcid AC twice daily, a 1/2 hour before breakfast and a 1/2 hour before dinner. Return to the ED if your chest pain wo rsens, your unable to keep down fluids, you have a fever, chills, you have trouble breathing. Please follow-up with your PCP. Prescriptions: No Action hydroxyzine pamoate 25 mg capsule 25 mg PO Q8H PRN (Reason: itching) Qty: 90 2RF cholecalciferol (vitamin D3) 100 mcg (4,000 unit) capsule 4,000 unit PO DAILY Qty: 90 1RF cyclobenzaprine 10 mg tablet 10 mg PO BEDTIME PRN (Reason: muscle spasm) Qty: 90 1RF paroxetine HCl [Paxil] 20 mg tablet 20 mg PO Q DAY Qty: 90 3RF levothyroxine [Synthroid] 75 mcg tablet 75 mcg PO QAM Qty: 90 3RF Rx Instructions: Take one tablet by mouth each morning. tramadol 50 mg tablet 50 mg PO TID PRN (Reason: pain) Qty: 30 5RF Rx Instructions: Exempt clobetasol 0.05 % ointment 1 applic Topical QDAY Qty: 30 5RF alprazolam 0.5 mg tablet 0.5 mg PO BEDTIME PRN (Reason: insomnia) Qty: 15 5RF Referrals: Curt Schwartz MD [Primary Care Provider] - <Cami Amezcua MD - Last Filed: 07/14/21 23:57> Cosign ED Attending Cosignature Attestation: I was immediately available in the department for consultation throughout this patient's visit. I agree with documentation as above. Cami Amezcua MD
[2021-07-09] MEDS: FAMOTIDINE 20 MG/2 ML VIAL IV (17:14)
[2021-07-09] MEDS: MAG HYDROX/ALUMINUM/SIMETH SUS 20 ML, LIDOCAINE VISCOUS 2% 15 ML PO (17:15)
[2021-07-09 18:46] LABS: Troponin I < 0.012 ng/mL (0.01-0.034)
== END 2021-07-09 19:22 | disposition home or self-care (01) ==
PROVIDERS: Emergency Medicine; Emergency Provider Student in an Organized Health Care Education/Training Program; Family Provider Family Medicine; PCP Student in an Organized Health Care Education/Training Program
DX: R07.9 Chest pain, unspecified (principal); R11.0 Nausea; Z20.822 Contact with and (suspected) exposure to COVID-19
CPT/HCPCS: 36415; 71045; 80053; 81003; 82550; 83690; 84484; 85025; 87635; 93005; 93010; 96374; 96375; 99284; J2405

== ENCOUNTER → 2021-07-09 14:58 | Outpatient (CLI) | payer MEDICARE, SELFPAY ==
[2021-07-09 15:50] LABS: COVID19 -Nasal RAPID Negative (Negative)
== END ==
PROVIDERS: Family Provider Family Medicine; PCP Student in an Organized Health Care Education/Training Program; Visit Provider Nurse Practitioner Family
DX: Z20.822 Contact with and (suspected) exposure to COVID-19 (principal)
CPT/HCPCS: 87635

== ENCOUNTER → 2022-12-02 11:39 | Outpatient (CLI) | payer MEDICARE, SELFPAY ==
--- NOTE | 2022-12-02 | DI.MG.S_ITS ---
BILATERAL DIGITAL DIAGNOSTIC MAMMOGRAM 3D/2D WITH AUGMENTATION: 12/02/2022 CLINICAL: Breast pain. Comparison is made to exams dated: 07/10/2020 mammogram, 07/15/2017 mammogram, and 07/14/2015 mammogram - [facility]. There are scattered areas of fibroglandular density in both breasts (category b / 25%-50% glandular tissue). Bilateral breast implants are stable. There are benign densities in the left breast. Multiple round hyperdense foci consistent with silicone granulomas are stable compared to prior remote mammograms. No new masses or calcifications. No other significant masses or calcifications are seen in either breast. IMPRESSION: INCOMPLETE: NEEDS ADDITIONAL IMAGING EVALUATION Stable mammogram compared to remote mammograms with multiple round silicone granulomas. Given new onset of pain, recommend ultrasound which will be performed today and dictated separately. Based on the Tyrer Cuzick model (a risk assessment model) the patient's lifetime risk is 0.2% and her 10 year risk is 0.0%. According to the ACR, ACS, and NCCN guidelines, an annual breast MRI exam along with mammogram is recommended if the patient's lifetime risk is 20% or greater. This exam was interpreted at Station ID: [id number]. NOTE: For mammograms, a report in lay terms will be sent to the patient. Approximately 15% of breast malignancies will not be visualized mammographically. In the management of a palpable breast mass, a negative mammogram must not discourage biopsy of a clinically suspicious lesion. Electronically Signed By: Duncan Booker M.D. acr/:12/02/2022 13:47:01 copy to: Chencho Monreal ACR BI-RADS Category 0: Incomplete 3340F
--- NOTE | 2022-12-02 11:40 | DI.US.S_ITS ---
LIMITED ULTRASOUND OF LEFT BREAST: 12/02/2022 CLINICAL: Focal left breast pain. Comparison is made to exams dated: 12/02/2022 mammogram, 07/10/2020 mammogram, and 07/15/2017 mammogram - [facility]. Ultrasound of the left breast 9 o'clock region was performed. Cummings scale images of the real-time examination were reviewed. Scattered silicon granulomas were noted. No solid or cystic mass. IMPRESSION: BENIGN There is no sonographic evidence of malignancy. A 1 year screening mammogram is recommended. This exam was interpreted at Station ID: [id number]. Electronically Signed By: Duncan Booker M.D. acr/:12/02/2022 13:49:34 copy to: Chencho Monreal letter sent: Normal Exam Ultrasound BI-RADS: 2 Benign
== END ==
PROVIDERS: Family Provider Family Medicine; PCP Student in an Organized Health Care Education/Training Program; Referring Provider Student in an Organized Health Care Education/Training Program; Visit Provider Student in an Organized Health Care Education/Training Program
DX: N64.4 Mastodynia (principal); Z98.82 Breast implant status; R92.2 Inconclusive mammogram
CPT/HCPCS: 76642; 77066; G0279

== ENCOUNTER → 2023-07-23 11:10 | Outpatient (CLI) | payer MEDICARE, SELFPAY ==
[2023-07-23 12:09] LABS: Add Manual Diff / Slide Review NO; Basophils Absolute Auto 100 /uL (0-100); Basophils Percent Auto 0.7 % (0-2); Eosinophils Absolute Auto 200 /uL (0-450); Eosinophils Percent Auto 2.6 % (2-4); Hematocrit 40.5 % (36-46); Hemoglobin 13.9 g/dL (12.0-16.0); Lymphocytes Absolute Auto 1600 /uL (1100-4500); Lymphocytes Percent Auto 20.2 % (25-40); Mean Corpuscular HGB Conc 34.4 % (30-36); Monocytes Absolute Auto 500 /uL (0-900); Neutrophils Absolute Auto 5800 /uL (1500-7000); Neutrophils Percent Auto 70.5 % (50-75); Platelet Count 345 X10^3/uL (150-400); Red Blood Cell Count 4.36 X10^6/uL (4.0-5.2); Red Cell Distribution Width 13.1 % (11.6-14.8); White Blood Cell Count 8.2 X10^3/uL (4.5-11.0)
[2023-07-23 12:47] LABS: Alanine Aminotransferase 22 IU/L (<35); Albumin 4.1 g/dL (3.5-5.0); Albumin Globulin Ratio 1.4 (1.0-2.8); Alkaline Phosphatase 80 U/L (38-126); Aspartate Aminotransferase 35 IU/L (14-36); BUN Creatinine Ratio 27.1 (6-22); Bilirubin Total 0.8 mg/dL (0.2-1.3); Blood Urea Nitrogen 19 mg/dL (7-17); Calcium 9.5 mg/dL (8.4-10.2); Carbon Dioxide 29 mmol/L (22-32); Chloride 102 mmol/L (98-107); Estimated Glomerular Filt Rate > 60 mL/min (>60); Globulin 2.9 g/dL (1.7-4.1); Glucose 92 mg/dL (80-110); HEMOLYSIS < 15 (0-50); Sodium 137 mmol/L (137-145)
[2023-07-23 13:13] LABS: TSH w/ Reflex to FT4 1.95 uIU/mL (0.47-4.68)
== END ==
PROVIDERS: Family Provider Family Medicine; PCP Family Medicine; Referring Provider Family Medicine; Visit Provider Family Medicine
DX: Z00.00 Encounter for general adult medical examination without abnormal findings (principal); E78.2 Mixed hyperlipidemia; E03.9 Hypothyroidism, unspecified; I10 Essential (primary) hypertension
CPT/HCPCS: 36415; 80053; 84443; 85025

== ENCOUNTER 2024-04-14 14:34 | Emergency (ER) | payer MEDICARE, SELFPAY ==
[2024-04-14] VITALS (7 sets, daily range): BP systolic 158–166; BP diastolic 73–77; PULSE 67–99; RESP 16; TEMP 35.9; O2SAT 95–98; BMI 22.8
[2024-04-14] MEDS: ONDANSETRON 4 MG/2 ML INJ IV (16:33)
[2024-04-14 16:50] LABS: Add Manual Diff / Slide Review NO; Basophils Absolute Auto 100 /uL (0-100); Basophils Percent Auto 0.6 % (0-2); Eosinophils Absolute Auto 100 /uL (0-450); Eosinophils Percent Auto 1.2 % (2-4); Hematocrit 44.8 % (36-46); Hemoglobin 14.9 g/dL (12.0-16.0); Lymphocytes Absolute Auto 1600 /uL (1100-4500); Lymphocytes Percent Auto 14.1 % (25-40); Mean Corpuscular HGB Conc 33.3 % (30-36); Mean Corpuscular Hemoglobin 31.4 PG (26-34); Mean Corpuscular Volume 94.1 fL (80-100); Monocytes Absolute Auto 600 /uL (0-900); Monocytes Percent Auto 5.3 % (3-14); Neutrophils Absolute Auto 9000 /uL (1500-7000); Neutrophils Percent Auto 78.8 % (50-75); Platelet Count 349 X10^3/uL (150-400); Red Blood Cell Count 4.76 X10^6/uL (4.0-5.2); Red Cell Distribution Width 13.1 % (11.6-14.8); White Blood Cell Count 11.4 X10^3/uL (4.5-11.0)
[2024-04-14 17:04] LABS: Alanine Aminotransferase 22 IU/L (<35); Albumin 4.6 g/dL (3.5-5.0); Albumin Globulin Ratio 1.5 (1.0-2.8); Alkaline Phosphatase 109 U/L (38-126); Aspartate Aminotransferase 42 IU/L (14-36); BUN Creatinine Ratio 19.5 (6-22); Bilirubin Total 1.2 mg/dL (0.2-1.3); Blood Urea Nitrogen 17 mg/dL (7-17); Calcium 10.2 mg/dL (8.4-10.2); Carbon Dioxide 25 mmol/L (22-32); Chloride 104 mmol/L (98-107); Estimated Glomerular Filt Rate > 60 mL/min (>60); Glucose 95 mg/dL (80-110); HEMOLYSIS < 15 (0-50); Lipase 106 U/L (23-300); Potassium 3.8 mmol/L (3.4-5.1); Sodium 138 mmol/L (137-145); Total Protein 7.6 g/dL (6.3-8.2)
--- NOTE | 2024-04-14 18:33 | ED.ABDPAIN ---
HPI - Abdominal Pain General Chief Complaint: Abdominal Pain Stated Complaint: abd pain sent from PCP Time Seen by Provider: 04/14/24 18:20 Source: patient Mode of arrival: Ambulatory Limitations: no limitations History of Present Illness HPI narrative: 84-year-old with history of hypertension, dyslipidemia patient presents with complaint of abdominal pain for the past 10 days she describes it as periumbilical. She has had 2 episodes of vomiting today and 1 episode of vomiting 10 days ago when it started. She has had decreased appetite been able to take small amount of food and water. States she has been stooling regularly, denies any dysuria urgency or frequency. Denies any black or bloody stools. States the pain does not radiate has not changed position. She describes it as dull and a lot of nausea. She states she has no daily medications but does take things for sleep. Has had prior appendectomy and tubal ligation. No known drug allergies. No tobacco, alcohol or recreational drugs. Dr. Morales is her primary care physician. She is accompanied by her . Related Data Previous Rx's Medication Instructions Recorded cholecalciferol (vitamin D3) 100 4,000 unit PO DAILY #90 caps 06/22/20 mcg (4,000 unit) capsule hydroxyzine pamoate 25 mg capsule 25 mg PO Q8H PRN itching #90 caps 11/05/22 cyclobenzaprine 10 mg tablet 10 mg PO BEDTIME PRN muscle spasm 01/09/23 #90 tabs levothyroxine 75 mcg tablet 75 mcg PO QAM #90 tabs 07/22/23 (Synthroid) paroxetine HCl 20 mg tablet (Paxil) 20 mg PO DAILY #90 tabs 07/22/23 estradiol 0.01% (0.1 mg/gram) 1 appful vaginal DAILY #42.5 grams 01/14/24 vaginal cream (Estrace) alprazolam 0.5 mg tablet 0.5 mg PO BEDTIME PRN insomnia #15 02/09/24 tabs tramadol 50 mg tablet 50 mg PO TID PRN pain #15 tabs 02/09/24 amoxicillin 875 mg-potassium 1 tab PO BID #20 tabs 04/14/24 clavulanate 125 mg tablet Allergies Allergy/AdvReac Type Severity Reaction Status Date / Time metoprolol Allergy Severe Hallucinations, Verified 04/14/24 14:40 SOB, pruritus tramadol Allergy Unknown Verified 04/14/24 14:40 Review of Systems Review of Systems ROS Unobtainable: All systems reviewed & are unremarkable except as noted in HPI and below Patient History Medical History Encounter for subsequent annual wellness visit (AWV) in Medicare patient 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 planus Eczema Sleep apnea (2008) Cataracts, bilateral (2013) Alopecia (2006) Skin cancer (~1989) Vaginal wall prolapse (~1989) Peptic ulcer disease Gastric ulcer Fractures (1961) Hyperlipidemia Hypertension Chronic headaches Anxiety RLS (restless legs syndrome) Hypothyroidism (2012) Urinary incontinence (2009) Tinnitus (1988) Chicken pox (~194) Measles Chronic back pain Foot pain (2014) Surgical History History of breast augmentation (1989) History of cataract surgery (2013) Status post trigger finger release (2013) Anesthesia History of vaginal surgery (1993) History of lumbosacral spine surgery (2001) Status post tubal ligation (1977) History of breast augmentation (1973) Status post appendectomy (~1947) History of third molar tooth extraction Family History Father Heart disease Grandfather Heart disease Grandmother Heart disease Mother Cancer Metastatic lung cancer (metastasis from lung to other site) Metastatic cancer to brain Family/Other Fibromyalgia Social History Smoking Status: Former smoker Smoking Status: Former smoker alcohol intake frequency: 0-2 drinks per day Substance Use Type: does not use Exam Narrative Exam Narrative: GENERAL: Alert and oriented x three, elderly female in mild distress. HEENT: Head normocephalic, atraumatic, EOMI, pupils reactive, face symmetric, moist mucous membranes NECK: Supple, full range of motion CARDIOVASCULAR: Regular rate and rhythm without murmurs, rubs or gallops. RESPIRATORY: Breath sounds equal bilaterally, no wheezes rales or rhonchi. ABDOMEN: Soft, [id number] epigastric and periumbilical tenderness. No hernia noted. Patient is slightly distended but soft. Normoactive bowel sounds all 4 quadrants. No guarding or rebound, rigidity, no mass : No CVA tenderness EXTREMITIES: Normal range of motion, no clubbing or edema. Neurovascularly intact NEUROLOGICAL: Cranial nerves II through XII grossly intact. Moving all extremities SKIN: Warm, dry, no petechiae, no rashes or lesions. Initial Vital Signs Initial Vital Signs: Vital Signs Temperature 96.7 F L 04/14/24 14:37 Pulse Rate 99 H 04/14/24 14:37 Respiratory Rate 16 04/14/24 14:37 Blood Pressure 158/73 H 04/14/24 14:37 Pulse Oximetry 97 04/14/24 14:37 Oxygen Delivery Method Room Air 04/14/24 14:37 Course Orders Ordered: Discontinued Medications Amoxicillin/Clavulanate Potassium (Amoxicillin/Clav 875/125 Mg) 1 tab PO NOW ONE Stop: 04/14/24 20:01 Last Admin: 04/14/24 20:16 Dose: 1 tab Documented By: Sodium Chloride (Normal Saline 0.9%) 1,000 mls @ 1,000 mls/hr IV BOLUS ONE Stop: 04/14/24 19:31 Last Infusion: 04/14/24 19:43 Dose: Infused Documented By: Admin: 04/14/24 18:54 Dose: 1,000 mls/hr Documented By: ADELA Ondansetron HCl (Ondansetron 4 Mg/2 Ml Inj) 4 mg IV NOW PRN PRN Reason: Nausea And Vomiting Last Admin: 04/14/24 16:33 Dose: 4 mg Documented By: TC Ondansetron HCl (Ondansetron 4 Mg Odt) 4 mg PO NOW PRN PRN Reason: Nausea And Vomiting Ondansetron HCl (Ondansetron 4 Mg Odt Prepack) 1 bottle MISC DIRECTED ONE Stop: 04/14/24 20:01 Last Admin: 04/14/24 20:16 Dose: 1 bottle Documented By: Vital Signs Vital signs: Vital Signs - 8 hr 04/14/24 14:37 04/14/24 18:15 04/14/24 18:17 Temperature 96.7 F L Pulse Rate 99 H 70 Respiratory Rate 16 Blood Pressure 158/73 H 166/77 H Pulse Oximetry 97 95 Oxygen Delivery Method Room Air 04/14/24 18:17 04/14/24 18:30 04/14/24 18:30 Temperature Pulse Rate 70 69 Respiratory Rate Blood Pressure 164/77 H Pulse Oximetry 96 98 Oxygen Delivery Method 04/14/24 19:00 04/14/24 19:00 Temperature Pulse Rate 69 Respiratory Rate Blood Pressure 166/77 H Pulse Oximetry 97 Oxygen Delivery Method MDM - Abdominal Pain Lab Data 04/14/24 16:30 04/14/24 16:30 Labs: Lab Results 04/14/24 Range/Units 16:30 WBC 11.4 H (4.5-11.0) X10^3/uL RBC 4.76 (4.0-5.2) X10^6/uL Hgb 14.9 (12.0-16.0) g/dL Hct 44.8 (36-46) % MCV 94.1 (80-100) fL MCH 31.4 (26-34) PG MCHC 33.3 (30-36) % RDW 13.1 (11.6-14.8) % Plt Count 349 (150-400) X10^3/uL Neut % (Auto) 78.8 H (50-75) % Lymph % (Auto) 14.1 L (25-40) % Branch % (Auto) 5.3 (3-14) % Eos % (Auto) 1.2 L (2-4) % Baso % (Auto) 0.6 (0-2) % Neut # (Auto) 9000 H (0217-4105) /uL Lymph # (Auto) 1600 (1645-4344) /uL Branch # (Auto) 600 (0-900) /uL Eos # (Auto) 100 (0-450) /uL Baso # (Auto) 100 (0-100) /uL Sodium 138 (137-145) mmol/L Potassium 3.8 (3.4-5.1) mmol/L Chloride 104 (98-107) mmol/L Carbon Dioxide 25 (22-32) mmol/L BUN 17 (7-17) mg/dL Creatinine 0.87 (0.52-1.04) mg/dL Estimated GFR > 60 (>60) mL/min BUN/Creatinine Ratio 19.5 (6-22) Glucose 95 (80-110) mg/dL Calcium 10.2 (8.4-10.2) mg/dL Total Bilirubin 1.2 (0.2-1.3) mg/dL AST 42 H (14-36) IU/L ALT 22 (<35) IU/L Alkaline Phosphatase 109 (38-126) U/L Total Protein 7.6 (6.3-8.2) g/dL Albumin 4.6 (3.5-5.0) g/dL Globulin 3.0 (1.7-4.1) g/dL Albumin/Globulin Ratio 1.5 (1.0-2.8) Lipase 106 (23-300) U/L Point of care testing: Urine Dip Bedside Urine Glucose Negative Bedside Urine Bilirubin - Negative Bedside Urine Ketone +/- 5 Urine Specific [place] 1.010 Bedside Urine Occult Blood - Negative Bedside Urine pH 6.0 Bedside Urine Protein - Negative Bedside Urine Urobilinogen - Negative Bedside Urine Nitrite - Negative Bedside Urine Leukocytes - Negative Esterase Imaging Data CT scan - abdomen/pelvis: Radiologist's Impression: Aria Stockton??84??F??1940 ? Allergy/Adv: metoprolol, tramadol Close Abdomen/Pelvis CT (Signed) Kaelyn Ames - 04/14/24 Breast Ultrasound (Signed) Duncan Booker - 12/02/22 Mammogram Diagnostic (Signed) Duncan Booker - 12/02/22 Chest X-Ray (Signed) Natividad Rojas - 07/09/21 Chest X-Ray (Signed) Toño Mccann - 05/09/21 Lumbar Spine MRI (Signed) Long French - 10/26/20 Mammogram Screening (Signed) Chris Saez - 07/10/20 Bone Densitometry 05/25/20 Chest X-Ray (Signed) Trey Pandya - 09/03/18 Launch?[address] [address] [address] Scan Report Signed Patient: Aria Stockton MR#: [id number] : 1940 Acct:[id number] Age/Sex: 84 / F Date of Service: 04/14/24 Loc: ED Accession Number: [id number] Procedure: CT abdomen pelvis w con Ordering Provider: Carlota Todd D.O. PROCEDURE: CT ABDOMEN PELVIS W CON INDICATIONS: epigastric/periumbilical pain x 10 days, vomited x 3 TECHNIQUE: After the administration of intravenous contrast, axial sections acquired from the lung bases to the pubic symphysis. Coronal and sagittal reformats were performed. For radiation dose reduction, the following was used: automated exposure control, adjustment of mA and/or kV according to patient size. COMPARISON: None. FINDINGS: Image quality: Diagnostic. Lower Chest: Bilateral breast implants. ABDOMEN: Liver: No solid mass. Steatosis. Gallbladder: No radiopaque gallstones or wall thickening. Biliary ducts: No biliary dilation. Pancreas: No ductal dilation. Spleen: Size is within normal limits. Adrenal Glands: No adrenal nodules. Kidneys and Ureters: No hydronephrosis. No solid mass. No complex renal cystic lesion which requires follow up. Stomach and Bowel: No obstruction. There is mild thickened appearance of the descending and sigmoid colon with minimal inflammatory change. Diverticular present. Peritoneum: No abnormal intraperitoneal fluid. No free air. Ventral Wall: No significant ventral hernia. Abdominal Nodes: No retroperitoneal or mesenteric adenopathy by size criteria. Vessels: Aorta and inferior vena cava are normal in size. PELVIS: Pelvic Organs: Unremarkable. Bladder: No bladder wall thickening, accounting for underdistention. Pelvic Nodes: No enlarged lymph nodes. Miscellaneous: No inguinal hernias are seen. Bones: No aggressive osseous abnormality. IMPRESSION: Suspected early colitis secondary to diverticulitis within the left colon. No abscess. Dictated by: Kaelyn Ames M.D. on 04/14/2024 at 19:24 Approved by: Kaelyn Ames M.D. on 04/14/2024 at 19:26 ECG Data Attestation: I personally reviewed and interpreted this ECG as follows: Interpretation: Sinus rhythm, nonspecific change rate of 66 ME 206 QRS 74 QTC of 333. MDM Narrative Medical decision making narrative: White count 11.4 hemoglobin of 14.9 platelets of 349 predominance of neutrophils. Chemistries show normal sodium, potassium, chloride, CO2 is 25 BUN 17 creatinine 0.87 glucose is 95 calcium is 10.2 AST is 42 but bilirubin of 1.2 ALT 22 alk-phos of 109 and a lipase of 106. CT abdomen pelvis shows early colitis versus diverticulitis in the left colon. No abscess. Point of care urine does not show clear infection. EKG shows sinus rhythm but nonspecific change. Patient has tolerated orals here in the department. She was feeling improved. Would like to return home we will start on oral antibiotic for potential diverticulitis. We will send for a prepack of antinausea medication discussed return precautions. Discharge Plan Departure Patient Disposition: Home Clinical Impression: Diverticulitis Instructions: DI for Diverticulitis Activity Restrictions/Additional Instructions: Please follow up with your physician for recheck if you are not feeling improved. Your CT showed possible colitis versus diverticulitis. You has been started on oral antibiotic please take this until it is completed. Take 1 tablet every 12 hours times 10 days. Prescription was sent to [facility] in [place]. You can take Zofran or ondansetron the antinausea medication 1 tablet every 6 hours as needed. Please return for fevers new or worsening abdominal back or flank pain, persistent vomiting, black or bloody stools, lightheadedness or passing out or other new or concerning changes. Prescriptions: New amoxicillin-pot clavulanate 875-125 mg tablet 1 tab PO BID Qty: 20 0RF No Action cholecalciferol (vitamin D3) 100 mcg (4,000 unit) capsule 4,000 unit PO DAILY Qty: 90 1RF hydroxyzine pamoate 25 mg capsule 25 mg PO Q8H PRN (Reason: itching) Qty: 90 2RF cyclobenzaprine 10 mg tablet 10 mg PO BEDTIME PRN (Reason: muscle spasm) Qty: 90 1RF levothyroxine [Synthroid] 75 mcg tablet 75 mcg PO QAM Qty: 90 1RF Rx Instructions: Take one tablet by mouth each morning. paroxetine HCl [Paxil] 20 mg tablet 20 mg PO DAILY Qty: 90 3RF estradiol [Estrace] 0.01 % (0.1 mg/gram) cream 1 appful vaginal DAILY Qty: 42.5 3RF Rx Instructions: Apply a smalll amount to external genitalia once a day for 30 days tramadol 50 mg tablet 50 mg PO TID PRN (Reason: pain) Qty: 15 5RF alprazolam 0.5 mg tablet 0.5 mg PO BEDTIME PRN (Reason: insomnia) Qty: 15 5RF Referrals: Mali Morales DO [Primary Care Provider] - Stand Alone Forms: Patient Portal/API
[2024-04-14] MEDS: SODIUM CHLORIDE 0.9% 1,000 ML 1000 ML IV (18:54)
--- NOTE | 2024-04-14 18:59 | EKG_ITS ---
[address] [address] Test Date: 2024-04-14 Pat Name: Aria Stockton Department: [facility] Room: Gender: Female [place]: : 1940 Requested By: Order Number: [id number] Reading MD: Solo Cazares Measurements Intervals [place] Rate: 66 P: 74 [place]: 206 QRS: 14 QRSD: 74 T: 90 QT: 318 QTc: 333 Interpretive Statements Normal sinus rhythm Nonspecific T wave abnormality Electronically Signed On 04-15-2024 9:28:04 PDT by Solo Cazares
[2024-04-14] MEDS: AMOXICILLIN/CLAV 875/125 MG 1 TAB PO (20:16)
[2024-04-14] MEDS: ONDANSETRON 4 MG ODT PREPACK 1 BOTTLE MISC (20:16)
== END 2024-04-14 20:22 | disposition home or self-care (01) ==
PROVIDERS: Emergency Medicine; Emergency Provider Emergency Medicine; Family Provider Family Medicine; PCP Family Medicine
DX: K57.32 Diverticulitis of large intestine without perforation or abscess without bleeding (principal)
CPT/HCPCS: 36415; 74177; 80053; 81003; 83690; 85025; 93005; 96374; 99284; J2405

== ENCOUNTER 2024-05-26 18:37 | Emergency (ER) | payer MEDICARE, SELFPAY ==
[2024-05-26 19:22] VITALS: BP 137/69; PULSE 65; RESP 18; TEMP 36.4; O2SAT 98; BMI 21.8
--- NOTE | 2024-05-26 19:27 | DI.RAD.S_ITS ---
PROCEDURE: XR HAND LT MIN 3V INDICATIONS: fall TECHNIQUE: 4 views of the hand(s) acquired. COMPARISON: None. FINDINGS: Bones: Comminuted, intra-articular fracture at the base of the 2nd proximal phalanx. Interphalangeal joint space narrowing with osteophytosis. Soft tissues: No suspicious soft tissue calcifications. IMPRESSION: Comminuted, intra-articular fracture at the base of the 2nd proximal phalanx. Dictated by: Luis Connor M.D. on 05/26/2024 at 19:54 Approved by: Luis Connor M.D. on 05/26/2024 at 19:55
--- NOTE | 2024-05-26 19:27 | DI.RAD.S_ITS ---
PROCEDURE: XR WRIST LT MIN 3V INDICATIONS: fall TECHNIQUE: 4 views of the wrist were acquired. COMPARISON: None. FINDINGS: Bones: No fractures or dislocations of the wrist. No suspicious bony lesions. Soft tissues: No suspicious soft tissue calcifications. IMPRESSION: No acute bony abnormality. Please see hand series for further discussion regarding the 2nd phalanx fracture. Dictated by: Luis Connor M.D. on 05/26/2024 at 19:55 Approved by: Luis Connor M.D. on 05/26/2024 at 19:55
[2024-05-26 21:58] VITALS: BP 142/66; PULSE 67; RESP 18; TEMP 36.4; O2SAT 97
[2024-05-26] MEDS: ACETAMINOPHEN 325 MG TABLET 650 MG PO (22:57)
[2024-05-26 23:50] VITALS: PULSE 66; O2SAT 95
[2024-05-26 23:51] VITALS: BP 188/91; PULSE 61
--- NOTE | 2024-05-26 23:59 | ED.UPPEXIN ---
HPI - Extremity Injury (Upper) General Chief Complaint: Extremity Injury, Upper Stated Complaint: fell- left hand pain Time Seen by Provider: 05/26/24 23:59 Source: patient Mode of arrival: Ambulatory History of Present Illness HPI narrative: 84-year-old [facility] lost her balance, fell backwards, with left hand extended, complained of pain to left hand index finger as well as adjacent middle and ring fingers, as well as left wrist discomfort. No injury to the forearm, elbow, upper arm, shoulder, clavicle. No head or face injuries. No truncal injuries. No lower extremity injuries. No right upper extremity injury. He does not take blood thinner medications. Related Data Previous Rx's Medication Instructions Recorded cholecalciferol (vitamin D3) 100 4,000 unit PO DAILY #90 caps 06/22/20 mcg (4,000 unit) capsule hydroxyzine pamoate 25 mg capsule 25 mg PO Q8H PRN itching #90 caps 11/05/22 cyclobenzaprine 10 mg tablet 10 mg PO BEDTIME PRN muscle spasm 01/09/23 #90 tabs levothyroxine 75 mcg tablet 75 mcg PO QAM #90 tabs 07/22/23 (Synthroid) estradiol 0.01% (0.1 mg/gram) 1 appful vaginal DAILY #42.5 grams 01/14/24 vaginal cream (Estrace) alprazolam 0.5 mg tablet 0.5 mg PO BEDTIME PRN insomnia #15 02/09/24 tabs tramadol 50 mg tablet 50 mg PO TID PRN pain #15 tabs 02/09/24 ondansetron 4 mg disintegrating 4 mg PO Q8H PRN nausea and 04/28/24 tablet vomiting #30 tabs paroxetine HCl 20 mg tablet (Paxil) 20 mg PO DAILY #90 tabs 04/28/24 amoxicillin 875 mg-potassium 1 tab PO BID #20 tabs 05/18/24 clavulanate 125 mg tablet tramadol 50 mg tablet 50 mg PO TID PRN pain #20 tabs 05/27/24 Allergies Allergy/AdvReac Type Severity Reaction Status Date / Time metoprolol Allergy Severe Hallucinations, Verified 05/26/24 19:25 SOB, pruritus tramadol Allergy Unknown Verified 05/26/24 19:25 Review of Systems Review of Systems Narrative: see HPI Patient History Medical History Encounter for subsequent annual wellness visit (AWV) in Medicare patient 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 planus Eczema Sleep apnea (2008) Cataracts, bilateral (2013) Alopecia (2006) Skin cancer (~1989) Vaginal wall prolapse (~1989) Peptic ulcer disease Gastric ulcer Fractures (1961) Hyperlipidemia Hypertension Chronic headaches Anxiety RLS (restless legs syndrome) Hypothyroidism (2012) Urinary incontinence (2009) Tinnitus (1988) Chicken pox (~1943) Measles Chronic back pain Foot pain (2014) Surgical History History of breast augmentation (1989) History of cataract surgery (2013) Status post trigger finger release (2013) Anesthesia History of vaginal surgery (1993) History of lumbosacral spine surgery (2001) Status post tubal ligation (1977) History of breast augmentation (1973) Status post appendectomy (~1947) History of third molar tooth extraction Family History Father Heart disease Grandfather Heart disease Grandmother Heart disease Mother Cancer Metastatic lung cancer (metastasis from lung to other site) Metastatic cancer to brain Family/Other Fibromyalgia Social History Smoking Status: Former smoker Smoking Status: Former smoker alcohol intake frequency: 0-2 drinks per day Substance Use Type: does not use Exam Narrative Exam Narrative: GENERAL: Well-developed patient, in mild distress. HEAD: Atraumatic. Normocephalic. EYES: Pupils equal round and reactive. Extraocular motions intact. No scleral icterus. No injection or drainage. ENT: Nose without bleeding, purulent drainage. Throat without erythema, tonsillar hypertrophy or exudate. Airway patent. NECK: Trachea midline. Non tender CARDIOVASCULAR: Regular rate and rhythm without murmurs, gallops, or rubs. RESPIRATORY: Clear to auscultation. Breath sounds equal bilaterally. No wheezes, rales, or rhonchi. GASTROINTESTINAL: Abdomen soft, non-tender, nondistended. EXTREMITIES: Tenderness and bruising to the left index finger, superficial abrasions, some tenderness without deformity to middle finger and 4th finger, no gross deformities or dislocations. Minimal tenderness to left wrist without gross deformity. No tenderness or swelling to proximal left upper extremity. No obvious injuries to right upper extremity, bilateral lower extremities. BACK: Nontender without deformity or crepitance. No flank tenderness. NEURO: AOx3. Motor functions grossly nonfocal SKIN: No rash or erythema of visible areas Initial Vital Signs Initial Vital Signs: Vital Signs Temperature 97.5 F L 05/26/24 19:22 Pulse Rate 65 05/26/24 19:22 Respiratory Rate 18 05/26/24 19:22 Blood Pressure 137/69 05/26/24 19:22 Pulse Oximetry 98 05/26/24 19:22 Oxygen Delivery Method Room Air 05/26/24 19:22 Course Orders Ordered: ED Orders 05/26/24 19:27 XR hand LT min 3V Stat XR wrist LT min 3V Stat Discontinued Medications Acetaminophen (Acetaminophen 325 Mg Tablet) 650 mg PO NOW ONE Stop: 05/26/24 22:54 Last Admin: 05/26/24 22:57 Dose: 650 mg Documented By: Bacitracin (Bacitracin Oint 0.9 Gm Pckt) 1 applic TOP NOW ONE Stop: 05/27/24 00:26 Last Admin: 05/27/24 00:51 Dose: 1 applic Documented By: Tramadol HCl (Tramadol 50 Mg Prepack) 1 bottle MISC DIRECTED ONE Stop: 05/27/24 00:16 Last Admin: 05/27/24 00:32 Dose: 1 bottle Documented By: Tramadol HCl (Tramadol 50 Mg Tablet) 50 mg PO NOW ONE Stop: 05/27/24 00:16 Last Admin: 05/27/24 00:31 Dose: 50 mg Documented By: Vital Signs Vital signs: Vital Signs - 8 hr 05/26/24 19:22 05/26/24 21:58 05/26/24 23:50 Temperature 97.5 F L 97.6 F Pulse Rate 65 67 66 Respiratory Rate 18 18 Blood Pressure 137/69 142/66 H Pulse Oximetry 98 97 95 Oxygen Delivery Method Room Air Room Air Room Air 05/26/24 23:51 05/26/24 23:51 05/27/24 00:00 Temperature Pulse Rate 61 58 L Respiratory Rate Blood Pressure 188/91 H Pulse Oximetry 98 Oxygen Delivery Method 05/27/24 00:01 05/27/24 00:01 05/27/24 00:26 Temperature Pulse Rate 59 L Respiratory Rate Blood Pressure 157/79 H Pulse Oximetry 98 96 Oxygen Delivery Method Room Air 05/27/24 00:31 Temperature Pulse Rate Respiratory Rate Blood Pressure 160/94 H Pulse Oximetry Oxygen Delivery Method MDM - Extremity Injury (Upper) Imaging Data Extremity x-ray #1: Radiologist's Impression: [address] [address] XRay Report Signed Patient: Aria Stockton MR#: [id number] : 1940 Acct:[id number] Age/Sex: 84 / F Date of Service: 05/26/24 Loc: ED Accession Number: [id number] Procedure: XR hand LT min 3V Ordering Provider: Jayce Reis MD PROCEDURE: XR HAND LT MIN 3V INDICATIONS: fall TECHNIQUE: 4 views of the hand(s) acquired. COMPARISON: None. FINDINGS: Bones: Comminuted, intra-articular fracture at the base of the 2nd proximal phalanx. Interphalangeal joint space narrowing with osteophytosis. Soft tissues: No suspicious soft tissue calcifications. IMPRESSION: Comminuted, intra-articular fracture at the base of the 2nd proximal phalanx. Dictated by: Luis Connor M.D. on 05/26/2024 at 19:54 Approved by: Luis Connor M.D. on 05/26/2024 at 19:55 Extremity x-ray #2: Radiologist's Impression: [address] [address] XRay Report Signed Patient: Aria Stockton MR#: [id number] : 1940 Acct:[id number] Age/Sex: 84 / F Date of Service: 05/26/24 Loc: ED Accession Number: [id number] Procedure: XR wrist LT min 3V Ordering Provider: Jayce Reis MD PROCEDURE: XR WRIST LT MIN 3V INDICATIONS: fall TECHNIQUE: 4 views of the wrist were acquired. COMPARISON: None. FINDINGS: Bones: No fractures or dislocations of the wrist. No suspicious bony lesions. Soft tissues: No suspicious soft tissue calcifications. IMPRESSION: No acute bony abnormality. Please see hand series for further discussion regarding the 2nd phalanx fracture. Dictated by: Luis Connor M.D. on 05/26/2024 at 19:55 Approved by: Luis Connor M.D. on 05/26/2024 at 19:55 [facility] Narrative Medical decision making narrative: 84-year-old female had ground level fall backwards, right index finger and hand finger pain. Ecchymoses right index finger. No open wounds, though there are some small nonsuturable small abrasion. X-ray shows no obvious wrist fracture. X-ray shows comminuted fracture base of proximal phalanx index finger, intra-articular component, though well aligned and not particularly displaced. Placed in finger splint wrist splint. Follow up with Orthopedic surgery, might need ORIF pinning stabilization. Oral analgesics. Home with Discharge Plan Departure Patient Disposition: Home Clinical Impression: Finger fracture, left, Sprain and strain of left wrist, Abrasion of left hand and fingers Instructions: DI for Finger Fracture Activity Restrictions/Additional Instructions: Fall injury with left hand and finger injuries, as well as left wrist pain. X-ray left wrist without obvious fracture. X-rays left hand showed comminuted multiple fractures of the phalanx bone of the index finger. No other fractures identified per Radiology report. Splinting performed. Pain medications. Antibiotic ointment to the superficial nonsuturable abrasions. Wound check advised in next couple of days with your regular doctor or with Orthopedic surgery listed on-call. Intra-articular fracture, might need pinning for stabilization. Follow up with Orthopedic surgery for surgical consultation opinion. Take medications for pain control as indicated. Prescriptions: New tramadol 50 mg tablet 50 mg PO TID PRN (Reason: pain) Qty: 20 0RF No Action cholecalciferol (vitamin D3) 100 mcg (4,000 unit) capsule 4,000 unit PO DAILY Qty: 90 1RF hydroxyzine pamoate 25 mg capsule 25 mg PO Q8H PRN (Reason: itching) Qty: 90 2RF cyclobenzaprine 10 mg tablet 10 mg PO BEDTIME PRN (Reason: muscle spasm) Qty: 90 1RF amoxicillin-pot clavulanate 875-125 mg tablet 1 tab PO BID Qty: 20 0RF levothyroxine [Synthroid] 75 mcg tablet 75 mcg PO QAM Qty: 90 1RF Rx Instructions: Take one tablet by mouth each morning. estradiol [Estrace] 0.01 % (0.1 mg/gram) cream 1 appful vaginal DAILY Qty: 42.5 3RF Rx Instructions: Apply a smalll amount to external genitalia once a day for 30 days tramadol 50 mg tablet 50 mg PO TID PRN (Reason: pain) Qty: 15 5RF alprazolam 0.5 mg tablet 0.5 mg PO BEDTIME PRN (Reason: insomnia) Qty: 15 5RF ondansetron 4 mg tablet,disintegrating 4 mg PO Q8H PRN (Reason: nausea and vomiting) Qty: 30 3RF paroxetine HCl [Paxil] 20 mg tablet 20 mg PO DAILY Qty: 90 3RF Referrals: Mali Morales DO [Primary Care Provider] - Cornelius Almonte MD [Physician] - Stand Alone Forms: Patient Portal/API
[2024-05-27] VITALS: PULSE 58; O2SAT 98
[2024-05-27 00:01] VITALS: BP 157/79; PULSE 59; O2SAT 98
[2024-05-27 00:26] VITALS: O2SAT 96
[2024-05-27 00:31] VITALS: BP 160/94
[2024-05-27] MEDS: TRAMADOL 50 MG TABLET PO (00:31)
[2024-05-27] MEDS: TRAMADOL 50 MG PREPACK 1 BOTTLE MISC (00:32)
[2024-05-27] MEDS: BACITRACIN OINT 0.9 GM PCKT 1 APPLIC TOP (00:51)
== END 2024-05-27 01:18 | disposition home or self-care (01) ==
PROVIDERS: Emergency Provider Emergency Medicine; Family Provider Family Medicine; PCP Family Medicine
DX: S62.611A Displaced fracture of proximal phalanx of left index finger, initial encounter for closed fracture (principal); W18.30XA Fall on same level, unspecified, initial encounter
CPT/HCPCS: 29125; 73110; 73130; 99283

== ENCOUNTER → 2024-07-12 10:00 | Outpatient (CLI) | payer MEDICARE, SELFPAY ==
[2024-07-12 11:03] LABS: Alanine Aminotransferase 22 IU/L (<35); Albumin 3.9 g/dL (3.5-5.0); Albumin Globulin Ratio 1.3 (1.0-2.8); Alkaline Phosphatase 87 U/L (38-126); Aspartate Aminotransferase 33 IU/L (14-36); BUN Creatinine Ratio 20.8 (6-22); Bilirubin Total 0.6 mg/dL (0.2-1.3); Blood Urea Nitrogen 16 mg/dL (7-17); Calcium 9.3 mg/dL (8.4-10.2); Carbon Dioxide 29 mmol/L (22-32); Chloride 106 mmol/L (98-107); Estimated Glomerular Filt Rate > 60 mL/min (>60); Glucose 106 mg/dL (80-110); HEMOLYSIS < 15 (0-50); Potassium 4.5 mmol/L (3.4-5.1); Sodium 137 mmol/L (137-145); Total Protein 6.9 g/dL (6.3-8.2)
[2024-07-12 11:35] LABS: TSH w/ Reflex to FT4 5.57 uIU/mL (0.47-4.68)
[2024-07-12 14:41] LABS: Free T4, Direct Thyroxine 0.79 ng/dL (0.78-2.19)
== END ==
LOC: LAB 10:01
PROVIDERS: Family Provider Family Medicine; PCP Family Medicine; Referring Provider Family Medicine; Visit Provider Family Medicine
DX: Z00.00 Encounter for general adult medical examination without abnormal findings (principal); I10 Essential (primary) hypertension; E03.9 Hypothyroidism, unspecified
CPT/HCPCS: 36415; 80053; 84439; 84443

== ENCOUNTER 2024-09-02 13:14 | Emergency (ER) | payer MEDICARE, SELFPAY ==
[2024-09-02 13:21] VITALS: BP 104/58; PULSE 67; RESP 16; TEMP 36.1; O2SAT 97; BMI 20.4
--- NOTE | 2024-09-02 13:24 | DI.RAD.S_ITS ---
PROCEDURE: XR WRIST RT MIN 3V INDICATIONS: wrist pain TECHNIQUE: 4 views of the wrist were acquired. COMPARISON: [facility], CR, XR WRIST LT MIN 3V, 05/26/2024, 19:27. FINDINGS: Bones: No fractures or dislocations. Osteoarthritic changes are noted throughout right hand and wrist joints. Diffuse osteopenia. No suspicious bony lesions. Soft tissues: No suspicious soft tissue calcifications. IMPRESSION: Jrez-kz-kaodhilx right wrist joint osteoarthritis and diffuse osteopenia. No acute fracture or dislocation. Mild dorsal soft tissue swelling. Dictated by: Tae Gutierrez M.D. on 09/02/2024 at 13:42 Approved by: Tae Gutierrez M.D. on 09/02/2024 at 13:43
--- NOTE | 2024-09-02 14:13 | PC.NURSE ---
Pt reports that she does not take any routine meds for pain and has not taken any OTC's today.
--- NOTE | 2024-09-02 14:28 | ED.UPPEXIN ---
HPI - Extremity Injury (Upper) <Eloina Jimenez PA-C - Last Filed: 09/02/24 21:04> General Chief Complaint: Extremity Injury, Upper Stated Complaint: wrist px Time Seen by Provider: 09/02/24 14:12 Source: patient Mode of arrival: Ambulatory History of Present Illness HPI narrative: Ms. Aria Stockton is a pleasant 84-year-old female with a past medical history of hypertension hyperlipidemia who presents to the emergency department for right wrist pain that occurred while opening her car door earlier today. Patient reports severe pain on the radial aspect of her right wrist worse with moving the thumb. This pain started when she was opening her car door she did not fall or have any direct trauma to the wrist. She is right-hand dominant. She denies numbness, tingling, fevers, chills, redness, history of gout. Related Data Previous Rx's Medication Instructions Recorded cholecalciferol (vitamin D3) 100 4,000 unit PO DAILY #90 caps 06/22/20 mcg (4,000 unit) capsule estradiol 0.01% (0.1 mg/gram) 1 appful vaginal DAILY #42.5 grams 01/14/24 vaginal cream (Estrace) ondansetron 4 mg disintegrating 4 mg PO Q8H PRN nausea and 04/28/24 tablet vomiting #30 tabs Disabled Parking Pass #1 ea 06/16/24 alprazolam 0.5 mg tablet 0.5 mg PO BEDTIME PRN insomnia #15 07/12/24 tabs paroxetine HCl 20 mg tablet (Paxil) 20 mg PO DAILY #90 tabs 07/12/24 tramadol 50 mg tablet 50 mg PO TID PRN pain #15 tabs 07/12/24 levothyroxine 88 mcg tablet 88 mcg PO DAILY #30 tabs 07/18/24 Allergies Allergy/AdvReac Type Severity Reaction Status Date / Time metoprolol Allergy Severe Hallucinations, Verified 07/12/24 09:26 SOB, pruritus tramadol Allergy Unknown Verified 07/12/24 09:26 Review of Systems <ROMARIO Martin Last Filed: 09/02/24 21:04> Review of Systems ROS Unobtainable: All systems reviewed & are unremarkable except as noted in HPI and below Patient History <Eloina Jimenez PA-C - Last Filed: 09/02/24 21:04> Medical History Depression, unspecified Encounter for subsequent annual wellness visit (AWV) in Medicare patient 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 planus Eczema Sleep apnea (2008) Cataracts, bilateral (2013) Alopecia (2006) Skin cancer (~1989) Vaginal wall prolapse (~1989) Peptic ulcer disease Gastric ulcer Fractures (1961) Hyperlipidemia Hypertension Chronic headaches Anxiety RLS (restless legs syndrome) Hypothyroidism (2012) Urinary incontinence (2009) Tinnitus (1988) Chicken pox (~1943) Measles Chronic back pain Foot pain (2014) Surgical History History of breast augmentation (1989) History of cataract surgery (2013) Status post trigger finger release (2013) Anesthesia History of vaginal surgery (1993) History of lumbosacral spine surgery (2001) Status post tubal ligation (1977) History of breast augmentation (1973) Status post appendectomy (~1947) History of third molar tooth extraction Family History Father Heart disease Grandfather Heart disease Grandmother Heart disease Mother Cancer Metastatic lung cancer (metastasis from lung to other site) Metastatic cancer to brain Family/Other Fibromyalgia Social History Smoking Status: Former smoker Smoking Status: Former smoker alcohol intake frequency: 0-2 drinks per day Exam <Eloina Jimenez PA-C - Last Filed: 09/02/24 21:04> Narrative Exam Narrative: GENERAL: 84 year old patient appears stated age. Well-developed patient, in no acute distress. HEAD: Atraumatic. Normocephalic. CARDIOVASCULAR: Regular rate. Strong radial pulse bilaterally. Brisk capillary refill in fingers. RESPIRATORY: ?Nonlabored respirations. ?Speaking in clear, full sentences. EXTREMITIES: Tenderness to palpation of radial aspect of right wrist. No snuffbox tenderness. Pain with movement of the right wrist. No skin changes or deformities. NEURO: AOx3. ?Clear speech. ?Sensation intact to light touch in the distribution of the median, radial, ulnar nerves bilaterally. SKIN: No rash or erythema of visible areas Initial Vital Signs Initial Vital Signs: Vital Signs Temperature 97.0 F L 09/02/24 13:21 Pulse Rate 67 09/02/24 13:21 Respiratory Rate 16 09/02/24 13:21 Blood Pressure 104/58 L 09/02/24 13:21 Pulse Oximetry 97 09/02/24 13:21 Oxygen Delivery Method Room Air 09/02/24 13:21 <Elle Guan DO - Last Filed: 09/07/24 04:00> Initial Vital Signs Initial Vital Signs: Vital Signs Temperature 97.0 F L 09/02/24 13:21 Pulse Rate 67 09/02/24 13:21 Respiratory Rate 16 09/02/24 13:21 Blood Pressure 104/58 L 09/02/24 13:21 Pulse Oximetry 97 09/02/24 13:21 Oxygen Delivery Method Room Air 09/02/24 13:21 Course <Eloina Jimenez PA-C - Last Filed: 09/02/24 21:04> Orders Ordered: Discontinued Medications Acetaminophen (Acetaminophen 325 Mg Tablet) 975 mg PO NOW ONE Stop: 09/02/24 14:40 Last Admin: 09/02/24 14:53 Dose: 975 mg Documented By: ERIK Ibuprofen (Ibuprofen 400 Mg Tablet) 400 mg PO NOW ONE Stop: 09/02/24 14:40 Last Admin: 09/02/24 14:53 Dose: 400 mg Documented By: ERIK Vital Signs Vital signs: Vital Signs - 8 hr 09/02/24 13:21 09/02/24 15:03 Temperature 97.0 F L Pulse Rate 67 60 Respiratory Rate 16 Blood Pressure 104/58 L 133/69 Pulse Oximetry 97 97 Oxygen Delivery Method Room Air Room Air <Elle Guan DO - Last Filed: 09/07/24 04:00> Orders Ordered: Discontinued Medications Acetaminophen (Acetaminophen 325 Mg Tablet) 975 mg PO NOW ONE Stop: 09/02/24 14:40 Last Admin: 09/02/24 14:53 Dose: 975 mg Documented By: ERIK Ibuprofen (Ibuprofen 400 Mg Tablet) 400 mg PO NOW ONE Stop: 09/02/24 14:40 Last Admin: 09/02/24 14:53 Dose: 400 mg Documented By: ERIK Vital Signs Vital signs: Vital Signs - 8 hr 09/02/24 13:21 09/02/24 15:03 Temperature 97.0 F L Pulse Rate 67 60 Respiratory Rate 16 Blood Pressure 104/58 L 133/69 Pulse Oximetry 97 97 Oxygen Delivery Method Room Air Room Air MDM - Extremity Injury (Upper) <Eloina Jimenez PA-C - Last Filed: 09/02/24 21:04> Medical Records Attestation: I reviewed the patient's medical records. Imaging Data Right Wrist X-Ray: Radiologist's Impression: PROCEDURE: XR WRIST RT MIN 3V INDICATIONS: wrist pain TECHNIQUE: 4 views of the wrist were acquired. COMPARISON: [facility], , XR WRIST LT MIN 3V, 05/26/2024, 19:27. FINDINGS: Bones: No fractures or dislocations. Osteoarthritic changes are noted throughout right hand and wrist joints. Diffuse osteopenia. No suspicious bony lesions. Soft tissues: No suspicious soft tissue calcifications. IMPRESSION: Ggir-rm-oiatjcxd right wrist joint osteoarthritis and diffuse osteopenia. No acute fracture or dislocation. Mild dorsal soft tissue swelling. [facility] Narrative Medical decision making narrative: 84-year-old female with a past medical history of hypertension hyperlipidemia who presents to the emergency department for right wrist pain that occurred while opening her car door earlier today. She is with her who contributes to the history. Differential diagnosis includes but is not limited to wrist fracture, sprain, strain, arthritis, gout, etc. On exam patient is in no acute distress, nontoxic appearing, vital signs within normal limits. Right hand neurovascularly intact with some tenderness over the radial wrist. Right wrist x-ray obtained in triage which reveals [id number]-cr-sywysaxr right wrist joint osteoarthritis and diffuse osteopenia. No acute fracture or dislocation. Mild dorsal soft tissue swelling. Suspect patient's pain is related to a strain of the right wrist likely exacerbating underlying arthritis. Printed out x-ray results discussed with the patient and her . She was placed into a right wrist Velcro splint for support given ibuprofen and Tylenol, recommended rice therapy and follow up with PCP/Orthopedics. Patient verbalized understanding of all information is agreeable to the plan. ED return precautions discussed. She is stable for discharge home. Discharge Plan Departure Patient Disposition: Home Clinical Impression: Osteoarthritis of right wrist Qualifiers: Osteoarthritis type: unspecified Qualified Code(s): M19.031 - Primary osteoarthritis, right wrist Instructions: DI for Wrist Pain Activity Restrictions/Additional Instructions: Dear Ms. Kurps, Today you were evaluated for right wrist pain and your x-ray showed osteoarthritis of the right wrist. Please continue wearing the right wrist brace and follow up with your primary care doctor. Please take Ibuprofen (Motrin/Advil) or Acetaminophen (Tylenol) for pain. These are available over the counter. You may take Ibuprofen 400 mg every 8 hours with food for pain. You may also take Acetaminophen 650 mg every 4-6 hours for pain. Do not exceed 3000 mg of Tylenol a day as this can cause liver damage. Do not drink alcohol with either of these medications. Please also use topical Voltaren cream on the right wrist. This can be purchased at the pharmacy. Please use RICE therapy for your pain in addition to ibuprofen/acetaminophen. Rest the painful area. Ice the area of pain/swelling for at least 15 minutes, 4x a day. Compress the area of swelling using a brace, wrap, or splint if applied. Elevate the painful or swollen extremity by supporting it above the level of the heart with pillows when sitting or laying. Please follow up with your primary care doctor within the next 2-3 days for ER follow-up. (If you do not have a PCP you can call [phone]. ?to schedule an appointment with an [facility] Primary Care Provider) IF YOU DEVELOP ANY NEW OR WORSENING SYMPTOMS, RETURN TO THE ER! Please read the attached instructions, they highlight more specific treatments and interventions for you at home. Thank you for letting me participate in your care, Eloina Jimenez PA-C Prescriptions: No Action cholecalciferol (vitamin D3) 100 mcg (4,000 unit) capsule 4,000 unit PO DAILY Qty: 90 1RF (DME) Disabled Parking Pass See Rx Instructions .Route .MEDSUPPLY Qty: 1 0RF Rx Instructions: I find this patient to be medically disabled and qualified for disabled parking as indicated, and signed, on the accompanying application. Valid for __5 years levothyroxine 88 mcg tablet 88 mcg PO DAILY Qty: 30 11RF estradiol [Estrace] 0.01 % (0.1 mg/gram) cream 1 appful vaginal DAILY Qty: 42.5 3RF Rx Instructions: Apply a smalll amount to external genitalia once a day for 30 days alprazolam 0.5 mg tablet 0.5 mg PO BEDTIME PRN (Reason: insomnia) Qty: 15 5RF tramadol 50 mg tablet 50 mg PO TID PRN (Reason: pain) Qty: 15 5RF paroxetine HCl [Paxil] 20 mg tablet 20 mg PO DAILY Qty: 90 3RF ondansetron 4 mg tablet,disintegrating 4 mg PO Q8H PRN (Reason: nausea and vomiting) Qty: 30 3RF Referrals: Mali Morales DO [Primary Care Provider] - Stand Alone Forms: Patient Portal/API/Survey ED Sign-out <Elle Guan DO - Last Filed: 09/07/24 04:00> Cosign ED Attending Joseature Attestation: I was available for consultation.
[2024-09-02] MEDS: IBUPROFEN 400 MG TABLET PO (14:53)
[2024-09-02] MEDS: ACETAMINOPHEN 325 MG TABLET 975 MG PO (14:53)
[2024-09-02 15:03] VITALS: BP 133/69; PULSE 60; O2SAT 97
== END 2024-09-02 15:25 | disposition home or self-care (01) ==
PROVIDERS: Emergency Provider Physician Assistant; Family Provider Family Medicine; PCP Family Medicine
DX: M19.031 Primary osteoarthritis, right wrist (principal); X58.XXXA Exposure to other specified factors, initial encounter
CPT/HCPCS: 73110; 99283

== ENCOUNTER → 2024-12-09 06:56 | Outpatient (CLI) | payer MEDICARE, SELFPAY ==
--- NOTE | 2024-12-09 06:59 | DI.US.S_ITS ---
PROCEDURE: US CAROTID DOPPLER BI INDICATIONS: DIFFICULTY SWALLOWING AND FACIAL DROOP TECHNIQUE: Color and pulse Doppler interrogation was performed of both carotid systems, with image documentation and velocity measurements. COMPARISON: None. FINDINGS: Stenosis calculations are based on SRU (Society of Radiologists in Ultrasound) criteria. Right side: Brachial blood pressure: 77/92 mm Hg. Common carotid artery peak systolic velocity: 46 cm/sec. Internal carotid artery peak systolic velocity: 64 cm/sec. Internal carotid artery end diastolic velocity: 19 cm/sec. External carotid artery peak systolic velocity: 115 cm/sec. ICA/CCA peak systolic ratio: 1.4 . Cummings scale imaging description: Heavy scattered plaque. Percent internal carotid artery stenosis: Less than 50% . Vertebral artery: Flow direction is antegrade. Left side: Brachial blood pressure: 179/90 mm Hg. Common carotid artery peak systolic velocity: 41 cm/sec. Internal carotid artery peak systolic velocity: 59 cm/sec. Internal carotid artery end diastolic velocity: 18 cm/sec. External carotid artery peak systolic velocity: 130 cm/sec. ICA/CCA peak systolic ratio: 0.7 . Cummings scale imaging description: Moderate scattered plaque. Percent internal carotid artery stenosis: Less than 50% . Vertebral artery: Flow direction is antegrade. IMPRESSION: 1. Less than 50% bilateral internal carotid artery stenosis. 2. Hypertension at time of exam. Dictated by: Darshan Balbuena [facility] Interpreted: Kaelyn Ames MD on 12/09/2024 at 8:38 Transcribed by: IAIN on 12/09/2024 at 8:39 Approved by: Kaelyn Ames M.D. on 12/09/2024 at 21:52
--- NOTE | 2024-12-09 06:59 | DI.MRI.S_ITS ---
PROCEDURE: MR HEAD/BRAIN WO CON INDICATIONS: diff swallowing. facial droop TECHNIQUE: Non-contrast axial T1 spin echo, axial T2 fast spin echo, sagittal and axial FLAIR, coronal T2 fast spin echo, axial gradient echo, axial diffusion and ADC through the brain. COMPARISON: None. FINDINGS: Image quality: Excellent. CSF spaces: Ventricles appear symmetric in size and shape. Basal cisterns are patent. No extra-axial fluid collections. Brain: No intracranial bleeds or mass effects. There is cerebral volume loss for age. There are periventricular and deep white matter chronic small vessel ischemic changes, expected for advanced age. Brainstem appears normal. Diffusion-weighted images show a definite right hemispheric deep white matter area of what appears to be subacute infarct lateral to the middle 3rd of the right lateral ventricle, just above the thalamic region of the right hemisphere measuring up to 2.3 cm in long axis dimension. No chronic ischemic insults. Normal intravascular flow voids are present. Skull and face: Calvarial bone marrow is normal in signal. Orbits are normal. Sinuses: Sinuses and mastoids are clear. IMPRESSION: Subacute appearing area of ischemic injury involving the deep white matter of the right hemisphere measuring up to 2.3 cm in long axis dimension, without associated hemorrhage or significant mass effect. Elsewhere moderate bilateral microvascular atherosclerotic change is seen in the deep white matter of each hemisphere, expected for advanced age. Dictated by: Jett Callaway M.D. on 12/09/2024 at 9:09 Approved by: Jett Callaway M.D. on 12/09/2024 at 9:14
== END ==
LOC: US 06:58
PROVIDERS: Family Provider Family Medicine; PCP Family Medicine; Referring Provider Family Medicine; Visit Provider Family Medicine
DX: I63.9 Cerebral infarction, unspecified (principal); I65.23 Occlusion and stenosis of bilateral carotid arteries; R13.10 Dysphagia, unspecified; R26.89 Other abnormalities of gait and mobility; R03.0 Elevated blood-pressure reading, without diagnosis of hypertension
CPT/HCPCS: 70551; 93880

== ENCOUNTER → 2024-12-20 09:47 | Outpatient (CLI) | payer MEDICARE, SELFPAY | LOC: CAR 09:48 | PROVIDERS: Family Provider Family Medicine; PCP Family Medicine; Referring Provider Family Medicine; Visit Provider Family Medicine | DX: I63.9 Cerebral infarction, unspecified (principal); R13.10 Dysphagia, unspecified; R26.89 Other abnormalities of gait and mobility | CPT/HCPCS: 93246 ==

== ENCOUNTER → 2024-12-22 12:24 | Outpatient (CLI) | payer MEDICARE, SELFPAY ==
--- NOTE | 2024-12-22 12:26 | DI.ECHO.S_ITS ---
[facility]+ [facility] : : [address] : : [place] : : [id number] : : Phone: [phone] Echocardiogram Report + + :Name: JOHNNY QURESHI Study Date: 12/22/2024 Height: 64 in : :[facility] ReadingLocation: Weight: 125 lb : : Gender: Female BSA: 1.6 m2 : :: 1940 Age: 84 yrs BP: 100/48 mmHg: :Reason For Study: CVA : :Ordering Physician: TAVON, : :HAMILTON Performed By: Toño Lockhart : :Referring: HAMILTON MONTES DE OCA : + + Interpretation Summary TDS - BREAST IMPLANTS The left ventricle is normal in size.The left ventricle is hyperdynamic. The ejection fraction is estimated to be 70-75%. Suspect mild intracavitary gradient. The right ventricle grossly appears normal in size with normal RV function. RVH. There is mild mitral regurgitation. The IVC is of normal diameter and collapses greater than 50% with a sniff. This suggests a low right atrial pressure of 3 mm Hg. There is mild luminal irregularity and echogenicity in the abdominal aorta, suggestive of aortic atherosclerotic disease. The patient was in normal sinus rhythm during the exam. Procedure: A two-dimensional transthoracic echocardiogram with color flow and Doppler was performed. The study quality was technically difficult. There is no prior echocardiogram noted for this patient. The patient was in normal sinus rhythm during the exam. Left Ventricle: The left ventricle is normal in size. There is normal left ventricular wall thickness. There is no ventricular septal defect visualized. The ejection fraction is estimated to be 70-75%. The left ventricle is hyperdynamic. There are no focal wall motion abnormalities. Diastolic parameters suggest a relaxation abnormality of the left ventricle, consistent with probable normal filling pressures. Right Ventricle: The right ventricle is not well visualized. The right ventricle grossly appears normal in size with probable normal systolic function. Atria: The left atrium is mildly dilated. Right atrial size is normal. There is no Doppler evidence for an interatrial shunt. The thickening of interatrial septum suggests lipomatous hypertrophy. Mitral Valve: The mitral valve leaflets appear mildly thickened, but open well. The mitral valve leaflets are mildly calcified. There is mild mitral regurgitation. Aortic Valve: The aortic valve is not well visualized. The aortic valve is mildly calcified. There is no aortic valve stenosis. No aortic regurgitation is present. Tricuspid Valve: The tricuspid valve is not well visualized. No tricuspid regurgitation. Pulmonic Valve: The pulmonic valve is not well visualized. There is no pulmonic valvular regurgitation. Great Vessels: The aortic root is normal size. The ascending aorta could not be visualized. There is mild luminal irregularity and echogenicity in the abdominal aorta, suggestive of aortic atherosclerotic disease. The aortic arch could not be visualized. The pulmonary artery is normal size. The IVC is of normal diameter and collapses greater than 50% with a sniff. This suggests a low right atrial pressure of 3 mm Hg. Pericardium/ Pleura There is no pericardial effusion. There is an anterior echo-free space consistent with a fat pad. There is no pleural effusion. MMode/2D Measurements & Calculations LVIDd: 4.1 cm LVOT diam: 1.9 cm LVIDs: 2.9 cm Ao root diam: 3.6 cm FS: 29.0 % EPSS: 0.40 cm IVSd: 1.0 cm LVPWd: 0.95 cm LV graham. diameter/BSA (cm/m^2): 2.6 LV sys. diameter/BSA (cm/m^2): 1.8 LA A2 area: 19.6 cm2 RA long axis: 4.0 cm LA A4 area: 16.0 cm2 RA area: 10.4 cm2 LA length (vol): 4.6 cm RA vol: 23.1 ml LA vol: 58.0 ml RA : 14.4 ml/m2 LA vol index: 36.2 ml/m2 IVC diam: 1.1 cm TAPSE: 2.2 cm Doppler Measurements & Calculations Ao V2 max: 140.5 cm/sec LVOT Max Ambrose: 116.0 cm/sec Ao V2 mean: 100.9 cm/sec LV V1 max P.4 mmHg Ao max P.9 mmHg LV V1 VTI: 27.0 cm Ao mean P.5 mmHg PRICE(I,D): 2.3 cm2 Ao V2 VTI: 32.2 cm PRICE(V,D): 2.2 cm2 sev ratio: 0.84 PRICE indexed to BSA (cm^2/m^2): 1.4 MV E max ambrose: 61.1 cm/sec PA V2 max: 105.6 cm/sec MV A max ambrose: 72.4 cm/sec PA V2 mean: 75.8 cm/sec MV E/A: 0.84 PA mean P.5 mmHg Med Peak E' Ambrose: 4.8 cm/sec PA pr([employer]): 39.6 mmHg E/E' med: 12.8 Lat Peak E' Ambrose: 7.5 cm/sec E/E' lat: 8.2 E/e' average: 10.5 MV dec time: 0.18 sec SV([facility]): 73.3 ml Reading Physician:04:43 PM
== END ==
PROVIDERS: Family Provider Family Medicine; PCP Family Medicine; Referring Provider Family Medicine; Visit Provider Family Medicine
DX: I63.9 Cerebral infarction, unspecified (principal); R13.10 Dysphagia, unspecified; R26.89 Other abnormalities of gait and mobility; I34.0 Nonrheumatic mitral (valve) insufficiency; Z98.82 Breast implant status
CPT/HCPCS: 93306

== ENCOUNTER → 2024-12-30 09:41 | Outpatient (CLI) | payer MEDICARE, SELFPAY ==
--- NOTE | 2024-12-30 17:02 | ST.SWALLOW ---
Visit Care Team Role Provider Type Mali Morales DO Attending Provider Physician Family Provider Primary Care Provider Referring Provider Specialty: Family Practice Address: [address] [place] [address], [address], [place], [address] Email: [email or web address] Modified Barium Swallow Study SPOT WELDER LINE Modified Barium Swallow Study Start: 12/30/24 16:08 Freq: Status: Active Protocol: Document 12/30/24 16:08 LNK (Rec: 12/30/24 17:01 LNK Desktop) Modified Barium Swallow Study Total Time Visit Start Time 10:00 Visit Stop Time 10:30 Total Visit Minutes [address] Morales Reason for Referral dysphagia Setting Setting Outpatient Care Patient Information Identification Type Name,Date of Patient History Pt was seen for a Modified Barium Swallow Study with c/o frequent coughing/choking when eating/drinking on a daily basis. Pt was accompanied by her who assisted in providing pt history. Pt's PMH includes CVA on 12/09/2024. An MRI report indicated an ischemic injury involving the deep white matter of the right hemisphere measuring up to 2.3 cm in long axis. She is also reported to have mild cognitive impairment. Pt's noted pt had a swallowing study in 2013 that indicated esophageal dysmotility. Subjective Observations Pt was seated in the fluoroscopy chair with directions and procedures described for her. She indicated she understood and agreed to proceed Patient Positioning Position View Lat-A/P Imaging Lateral View Textures Administered Trials Presented Thin Liquid via Spoon (IDDSI 0 ),Thin Liquid via Cup (IDDSI 0 ),Extremely Thick Liquid via Spoon (IDDSI 4),Regular (IDDSI 7) Barium Tablet Yes The IDDSI Framework Protocol: IDDSI.1 Oral Impairment Source: The Modified Barium Swallow Impairment Profile (MBSImP??) Lip Closure No labial escape Tongue Control During Bolus Hold Cohesive bolus between tongue to palatal seal Bolus Preparation/Mastication Timely & efficient chewing & mashing Bolus Transport/Lingual Motion Brisk tongue motion Oral Residue Complete oral clearance Initiation of Pharyngeal Swallow Bolus head at posterior angle of ramus (first hyoid excursion) Additional Oral Impairment Observations *OME and DKS were observed to be WNL. *Dentition natural and in good hygiene *Mastication observed with rotary chew pattern. *Good bolus formation, control and AP transition. *Velopharyngeal closure was WNL. Oral phase of swallow WNL Pharyngeal Impairment Source: The Modified Barium Swallow Impairment Profile (MBSImP??) Soft Palate Elevation No bolus between soft palate & pharyngeal wall Laryngeal Elevation Comp.sup.move.thyroid cart.w/ comp.approx.arytenoids to epiglot petiole Anterior Hyoid Excursion Complete anterior movement Epiglottic Movement Complete inversion Laryngeal Vestibular Closure Complete; no air/contrast in laryngeal vestibule Pharyngeal Stripping Wave Present - complete Pharyngoesophageal Segment Opening Complete distention & complete duration; no obstruction of flow Tongue Base Retraction Trace column of contrast/air betwn tongue base & post. pharyngeal wall Pharyngeal Residue Complete pharyngeal clearance Additional Pharyngeal Impairment *Flash penetration x1 (WNL) Observations *Good hyolaryngeal elevatio and movement *Complete epiglottic inversion and seal of the laryngeal vestibule * *Minimal contrast residual observed following trials *Complete duration and extension of the UES *No laryngeal penetration or tracheal aspiration observed Pharyngeal phase of swallow WNL A/P View Textures Administered Trials Presented Thin Liquid via Spoon (IDDSI 0 ) The IDDSI Framework Protocol: IDDSI.1 A/P View Observations Pharyngeal Contraction Complete Esophageal Clearance Upright Position Esophageal retention Vocal Fold Function Good Esophageal Function Slowed Clearing,Poor Motility, Stasis Additional A-P Observations *In AP view contrast was observed following previous trial. Contrast was noted from Sternum to the LES *Water wash minimally cleared contrast *Thin barium was observed to clear the esophagus in a timely manner *Calibrated 13mm barium tablet stopped at mid sternum, requiring several more sips of water to move it *More swallows of water were needed to move tablet to LES and into stomach Clinical Impressions Dysphagia Type Esophageal Findings Pt presented with oral and pharyngeal phases of swallowing WNL. No laryngeal penetration or tracheal aspiration were observed. Her esophageal phase was noted to be slow to clear with contrast residual. Reduced peristalsis required several swallows of water in order to clear esophageal contents to the stomach. The results and recommendations of the MBSS were described to the pt while observing still pictures taken during the MBSS. Pt and her expressed appreciation and indicated they understood. All pt questions were addressed. It was suggested that during meals, any distractions should be avoided and the pt should be more mindful of swallowing, making sure to not eat quickly, especially as her esophagus is slow to empty . Increasing water/liquids during meal to flush the esophagus was also recommended Outpatient swallow therapy is recommended to instruct the pt and her in safe swallow strategies and swallow exercises as indicated. Patient Appropriate for Therapy No Recommendations Diet Comments No change in diet recommended Aspiration Precautions Recommended Precautions Alternate Liquids/Solids Treatment Plan Therapy Recommendations Outpatient Speech Therapy
== END ==
PROVIDERS: Family Provider Family Medicine; PCP Family Medicine; Referring Provider Family Medicine; Visit Provider Family Medicine
DX: R13.10 Dysphagia, unspecified (principal)
CPT/HCPCS: 74230; 92611

== ENCOUNTER → 2025-03-08 10:58 | Outpatient (CLI) | payer MEDICARE, SELFPAY ==
[2025-03-08 12:03] LABS: Alanine Aminotransferase 21 IU/L (<35); Albumin 4.2 g/dL (3.5-5.0); Albumin Globulin Ratio 1.6 (1.0-2.8); Alkaline Phosphatase 68 U/L (38-126); Blood Urea Nitrogen 17 mg/dL (7-17); Calcium 9.2 mg/dL (8.4-10.2); Carbon Dioxide 27 mmol/L (22-32); Chloride 104 mmol/L (98-107); Cholesterol 162 mg/dL (140-199); Estimated Glomerular Filt Rate > 60 mL/min (>60); Globulin 2.6 g/dL (1.7-4.1); Glucose 72 mg/dL (70-99); HDL Cholesterol 76 mg/dL (40-60); HEMOLYSIS < 15 (0-50); Potassium 4.0 mmol/L (3.4-5.1); Sodium 138 mmol/L (137-145); Total Protein 6.8 g/dL (6.3-8.2); Triglycerides 77 mg/dL (35-150)
[2025-03-08 12:16] LABS: Hematocrit 40.5 % (36-46); Hemoglobin 13.7 g/dL (12.0-16.0); Mean Corpuscular HGB Conc 33.8 % (30-36); Mean Corpuscular Hemoglobin 31.8 PG (26-34); Mean Corpuscular Volume 94.2 fL (80-100); Platelet Count 299 X10^3/uL (150-400)
[2025-03-08 12:34] LABS: TSH w/ Reflex to FT4 3.38 uIU/mL (0.47-4.68)
== END ==
PROVIDERS: PCP Family Medicine; Referring Provider Family Medicine; Visit Provider Family Medicine
DX: E03.9 Hypothyroidism, unspecified (principal); I63.9 Cerebral infarction, unspecified; R13.10 Dysphagia, unspecified; R26.89 Other abnormalities of gait and mobility
CPT/HCPCS: 36415; 80053; 80061; 84443; 85027

== ENCOUNTER → 2025-04-22 16:55 | Outpatient (CLI) | payer MEDICARE, SELFPAY ==
[2025-04-22 17:47] LABS: Add Manual Diff / Slide Review NO; Hematocrit 39.9 % (36-46); Hemoglobin 13.6 g/dL (12.0-16.0); Lymphocytes Absolute Auto 1300 /uL (1100-4500); Mean Corpuscular HGB Conc 34.0 % (30-36); Mean Corpuscular Hemoglobin 31.2 PG (26-34); Mean Corpuscular Volume 91.7 fL (80-100); Platelet Count 309 X10^3/uL (150-400)
[2025-04-22 18:09] LABS: Alanine Aminotransferase 20 IU/L (<35); Albumin 4.0 g/dL (3.5-5.0); Albumin Globulin Ratio 1.5 (1.0-2.8); Alkaline Phosphatase 72 U/L (38-126); Blood Urea Nitrogen 22 mg/dL (7-17); Calcium 9.2 mg/dL (8.4-10.2); Carbon Dioxide 29 mmol/L (22-32); Chloride 102 mmol/L (98-107); Estimated Glomerular Filt Rate > 60 mL/min (>60); Globulin 2.6 g/dL (1.7-4.1); Glucose 111 mg/dL (70-99); HEMOLYSIS < 15 (0-50); Potassium 4.3 mmol/L (3.4-5.1); Sodium 137 mmol/L (137-145); Total Protein 6.6 g/dL (6.3-8.2)
[2025-04-22 18:40] LABS: TSH w/ Reflex to FT4 4.55 uIU/mL (0.47-4.68)
[2025-04-22 18:59] LABS: Vitamin B12 678 pg/mL (239-931)
== END ==
PROVIDERS: PCP Family Medicine; Referring Provider Family Medicine; Visit Provider Family Medicine
DX: R44.3 Hallucinations, unspecified (principal); E03.9 Hypothyroidism, unspecified; I63.20 Cerebral infarction due to unspecified occlusion or stenosis of unspecified precerebral arteries; F43.21 Adjustment disorder with depressed mood
CPT/HCPCS: 36415; 80053; 81002; 82607; 84443; 85025